=== PATIENT | female | born 1955 | race Caucasian/White ===

== ENCOUNTER 2019-11-16 10:21 | Outpatient (CLI) | payer MEDICARE, MEDICAID, SELFPAY ==
--- NOTE | 2019-11-17 00:45 | WPDPFTINT ---
PFT Interpretation PFT Interpretation: DOS: 11/16/2019 REQUESTING: Dr Salazar REASON FOR TESTING: Dyspnea on exertion PULMONARY FUNCTION TESTS The results are not reproducible. The patient was not able to exhale for greater than 6 seconds on 3 attempts. Spirometry: Normal FEV1, 101%. Normal FVC. Normal FEV1%. No bronchodilator was given. Lung volumes: Normal TLC. Increased RV/TLC ratio consistent with air trapping. Increased airway resistance 184%. Diffusion: DLCO 74%. Mildly decreased. Flow volume loop: One loop was normal. IMPRESSION: Normal spirometry, no bronchdilator was given. Mild air trapping and increased airway resistance consistent with obstructive process. Mild diffusion impairment. Kylee Causey MD
== END 2019-11-16 10:22 | disposition home or self-care (01) ==
PROVIDERS: PCP Family Medicine; Visit Provider Internal Medicine Cardiovascular Disease
DX: R06.09 Other forms of dyspnea (principal)
CPT/HCPCS: 94375; 94726; 94729

== ENCOUNTER → 2019-12-09 10:33 | Outpatient (CLI) | payer MEDICARE, MEDICAID, SELFPAY ==
--- NOTE | ~2019-12-09 | MM_ITS ---
EXAMINATION: MM screening kathy BI w fatou HISTORY: Screening mammogram TECHNIQUE: Craniocaudal and mediolateral oblique 3-D tomosynthesis images were obtained and synthetic 2-D images were generated. CAD analysis was submitted and interpreted. COMPARISON: 11/01/2018, 01/09/2017 bilateral digital screening mammogram examinations BREAST PARENCHYMAL COMPOSITION: The breasts are heterogeneously dense, which may obscure small masses . FINDINGS: Stable fibroglandular asymmetry. There is no evidence of suspicious mass, calcification, or architectural distortion to suggest malignancy in either breast. There has been no suspicious inte rval change. IMPRESSION: 1. No mammographic evidence of malignancy. 2. Recommend routine screening mammography in one year. BI-RADS Category 2: Benign finding(s). Reviewed, dictated and finalized at location A.
== END ==
PROVIDERS: PCP Family Medicine; Visit Provider Family Medicine
DX: Z12.31 Encounter for screening mammogram for malignant neoplasm of breast (principal)
CPT/HCPCS: 77063; 77067

== ENCOUNTER 2020-02-02 09:55 | Outpatient (CLI) | payer MEDICARE, MEDICAID, SELFPAY ==
[2020-02-02 10:46] LABS: Cholesterol 187 mg/dL (0-200); HDL Direct 47 mg/dL; Triglycerides 169 mg/dL (<150)
[2020-02-02 10:56] LABS: LDL Cholesterol Direct 110 mg/dL
== END 2020-02-02 09:56 | disposition home or self-care (01) ==
LOC: ANHLAB 09:59
PROVIDERS: PCP Family Medicine; Visit Provider Internal Medicine Cardiovascular Disease
DX: E78.5 Hyperlipidemia, unspecified (principal)
CPT/HCPCS: 36415; 80061

== ENCOUNTER 2020-04-18 14:13 | Emergency (ER) | payer MEDICARE, MEDICAID, SELFPAY ==
--- NOTE | ~2020-04-18 | CT_ITS ---
EXAMINATION: CT pelvis wo con DATE: 04/18/2020 16:21 INDICATION: Right hip pain after fall, initial encounter TECHNIQUE: Computed tomography (CT) of the pelvis was performed without intravenous contrast. The dos e-length product (DLP) was 789.71 mGy-cm. Automated exposure control and iterative reconstruction xavier hnique were employed. COMPARISON: 05/29/2016 FINDINGS: There is an acute, traumatic, nondisplaced fracture of the right inferior pubic ramus. A fr acture is also seen at the lateral aspect of the right sacrum (axial image 33). Bone alignment is nor mal. There are no dilated loops of bowel. No pathologically enlarged pelvic lymph nodes are identifie d. Osteitis pubis is noted. IMPRESSION: 1. Acute fractures of the right inferior pubic ramus and right sacrum. Reviewed, dictated and finalized at location A.
--- NOTE | ~2020-04-18 | XR_ITS ---
EXAMINATION: XR hip RT min 3V w AP pelvis INDICATION: Right hip pain TECHNIQUE: AP view the pelvis and three views of the right hip are obtained. COMPARISON: CT, 05/29/2016 FINDINGS: Bone alignment is normal. There is no fracture. There is mild bilateral hip osteoarthritis. Osteitis pubis is noted. Pelvic phleboliths are unchanged. IMPRESSION: 1. No acute osseous abnormality. Reviewed, dictated and finalized at location A.
[2020-04-18 14:19] VITALS: BP 113/86; PULSE 84; RESP 18; TEMP 36.8; O2SAT 97
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
[2020-04-18 16:14] VITALS: BP 118/74; PULSE 79; RESP 15; O2SAT 100
== END 2020-04-18 17:13 | disposition home or self-care (01) ==
PROVIDERS: Emergency Provider General Practice; PCP Family Medicine
DX: S32.501A Unspecified fracture of right pubis, initial encounter for closed fracture (principal); S32.10XA Unspecified fracture of sacrum, initial encounter for closed fracture; F31.9 Bipolar disorder, unspecified; D64.9 Anemia, unspecified; M54.5 Low back pain; G89.29 Other chronic pain; Z87.440 Personal history of urinary (tract) infections; F41.9 Anxiety disorder, unspecified; E78.5 Hyperlipidemia, unspecified; I10 Essential (primary) hypertension; M19.90 Unspecified osteoarthritis, unspecified site; W01.0XXA Fall on same level from slipping, tripping and stumbling without subsequent striking against object, initial encounter
CPT/HCPCS: 72192; 73502; 99284; A9270

== ENCOUNTER 2020-05-03 10:07 | Emergency (ER) | payer MEDICARE, MEDICAID, SELFPAY ==
[2020-05-03 10:21] VITALS: BP 156/89; PULSE 102; RESP 16; TEMP 37; O2SAT 97
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
== END 2020-05-03 11:18 | disposition home or self-care (01) ==
PROVIDERS: Emergency Provider Nurse Practitioner; PCP Family Medicine
DX: R30.0 Dysuria (principal); Z96.651 Presence of right artificial knee joint; F32.9 Major depressive disorder, single episode, unspecified; F41.9 Anxiety disorder, unspecified; H40.9 Unspecified glaucoma; E78.5 Hyperlipidemia, unspecified; I10 Essential (primary) hypertension; M19.90 Unspecified osteoarthritis, unspecified site; M81.0 Age-related osteoporosis without current pathological fracture; Z87.891 Personal history of nicotine dependence
CPT/HCPCS: 87077; 87086; 87088; 87186; 99213; G0463

== ENCOUNTER 2020-07-26 09:10 | Outpatient (CLI) | payer MEDICARE, MEDICAID, SELFPAY ==
[2020-07-26 10:21] LABS: Alanine Aminotransferase 29 U/L (4-35); Albumin Level 4.4 g/dL (3.5-5.1); Alkaline Phosphatase 131 U/L (38-126); Anion Gap 7 mmol/L (8-16); Aspartate Amino Transferase 36 U/L (14-36); Bilirubin,Total 0.6 mg/dL (0.2-1.3); Blood Urea Nitrogen 14 mg/dL (7-17); Calcium 9.6 mg/dL (8.4-10.2); Carbon Dioxide 35 mmol/L (22-30); Chloride 98 mmol/L (98-107); Cholesterol 172 mg/dL (0-200); Estimated Glomerular Filt Rate > 60; Glucose 97 mg/dL (65-105); HDL Direct 46 mg/dL; Potassium 4.6 mmol/L (3.4-5.0); Sodium 140 mmol/L (137-145); Triglycerides 255 mg/dL (<150)
[2020-07-26 10:32] LABS: LDL Cholesterol Direct 93 mg/dL
[2020-07-26 10:45] LABS: Creatinine Urine 130.1 mg/dL
[2020-07-26 10:51] LABS: MALB Creatinine Ratio 5.4 mg/g (0-30)
[2020-07-26 11:12] LABS: Free T4 Free Thyroxine 1.02 ng/mL (0.78-2.19); Vitamin D 25 Hydroxy 48.9 ng/mL
[2020-07-26 11:32] LABS: Basophils Percent Auto 0.5 % (0.2-1.2); Eosinophils Absolute Auto 0.3 K/mm3 (0-0.3); Eosinophils Percent Auto 3.8 % (0-4.4); Hematocrit 37.9 % (37.0-47.0); Hemoglobin 12.1 g/dL (12.0-15.0); Immature Granulocyte Absolute 0.03 K/mm3 (0.00-0.031); Immature Granulocyte Percent A 0.4 % (0-0.5); Lymphocytes Absolute Auto 1.26 K/mm3 (0.9-3.2); Lymphocytes Percent Auto 15.8 % (18.3-44.2); Mean Corpuscular HGB Conc 31.9 g/dl (32-36); Mean Corpuscular Hemoglobin 27.9 pg (26-34); Mean Corpuscular Volume 87.3 fl (80-100); Mean Platelet Volume 9.8 fl (7.4-10.4); Monocytes Absolute Auto 0.5 K/mm3 (0.1-0.6); Monocytes Percent Auto 6.1 % (2.6-8.5); Neutrophils Absolute Auto 5.9 K/mm3 (1.3-6.7); Neutrophils Percent Auto 73.4 % (45.5-73.1); Platelet Count Result 271 k/mm3 (150-375); Red Blood Count 4.34 M/mm3 (4.2-5.4); Red Cell Distribution Width 14.1 % (11.5-14.5)
== END 2020-07-26 09:11 | disposition home or self-care (01) ==
PROVIDERS: PCP Family Medicine; Visit Provider Nurse Practitioner
DX: E78.2 Mixed hyperlipidemia (principal); I10 Essential (primary) hypertension; E55.9 Vitamin D deficiency, unspecified; R80.9 Proteinuria, unspecified; Z13.6 Encounter for screening for cardiovascular disorders
CPT/HCPCS: 36415; 80053; 80061; 82043; 82306; 84439; 84443; 85025

== ENCOUNTER 2020-10-10 09:00 | Outpatient (CLI) | payer MEDICARE, MEDICAID, SELFPAY ==
--- NOTE | ~2020-10-10 | NM_ITS ---
EXAMINATION: NM willie stress w perfusion DATE: 10/10/2020 14:01 INDICATION: Chest pain. TECHNIQUE: Rest images were obtained following intravenous administration of 9.4 mCi Tc99m tetrofosmi n (Myoview). The patient was infused intravenously with Lexiscan (regadenoson). Then, 24.8 mCi Tc99m tetrofosmin (Myoview) was administered intravenously, and stress images were obtained. Data was recon structed into short axis and horizontal and vertical long axis SPECT images. Gated SPECT images were also obtained. COMPARISON: None. FINDINGS: There is no definite reversible or fixed perfusion abnormality to suggest ischemia or infar ction. There is no segmental wall motion abnormality. Left ventricular ejection fraction measures 6 9%. IMPRESSION: 1. No definite ischemia or infarct. 2. Normal left ventricular ejection fraction measuring 69%. Reviewed, dictated and finalized at location A. ATIONAL SPECIALIST
--- NOTE | 2020-10-10 10:54 | EST_ITS ---
Patient Info Name: Katie Spain Age: 65 years : 1955 Gender: Female Ht: 66 in Wt: 210 lbs BSA: 2.14 m2 Exam Date: 10/10/2020 10:59 AM Exam Location: [facility] Stress Patient Status: Outpatient Admit Date: 10/10/2020 Staff Ordering Physician: Jorge Salazar DO Attending Provider: Jorge Salazar DO Exercise Technologist: Wes Ahumada RDCS, RT Exam Type: CA stress willie w NM Study Info A regadenoson stress test was performed. Summary 1. 1. Negative lexiscan stress test for ischemic ST changes by ECG criteria. 2. 2. Baseline hypertension. 3. 3. Nuclear scan to follow and will be reported separately. Please correlate with it. 4. 4. Patient informed of the above results. Protocol: Lexiscan Stress ECG Details Stage: REST Duration (min): 1 min : 42 sec HR (bpm): 67 SBP (mmHg): 164 DBP (mmHg): 81 Stage: REST Duration (min): 5 min : 57 sec HR (bpm): 68 SBP (mmHg): 164 DBP (mmHg): 81 Stage: STAGE 1 Duration (min): 0 min : 59 sec HR (bpm): 91 SBP (mmHg): 175 DBP (mmHg): 80 Stage: RECOVERY Duration (min): 1 min : 0 sec HR (bpm): 90 SBP (mmHg): 175 DBP (mmHg): 80 Stage: RECOVERY Duration (min): 2 min : 0 sec HR (bpm): 91 SBP (mmHg): 175 DBP (mmHg): 80 Stage: RECOVERY Duration (min): 3 min : 0 sec HR (bpm): 85 SBP (mmHg): 216 DBP (mmHg): 80 Stage: RECOVERY Duration (min): 3 min : 38 sec HR (bpm): 88 SBP (mmHg): 211 DBP (mmHg): 79 Rest HR: 68 bpm Peak HR: 97 bpm Rest Sys BP: 164 mmHg Peak Sys BP: 216 mmHg Max Pred HR: 157 bpm % Max Pred HR: 62 % Target HR: 133 bpm Max RPP: 20,952 bpm*mmHg Termination Reason: Completed protocol Cardiac Symptoms: Shortness of breath Total Time: 1 min : 0 sec Rest Interiano BP: 81 mmHg Peak Interiano BP: 80 mmHg Total Dose: 0.4 mg Resting ECG Sinus rhythm. Stress ECG No ST changes. Arrhythmias None. Report Signatures
== END 2020-10-10 09:01 | disposition home or self-care (01) ==
PROVIDERS: Family Provider Orthopaedic Surgery; PCP Family Medicine; Visit Provider Internal Medicine Cardiovascular Disease
DX: R07.89 Other chest pain (principal)
CPT/HCPCS: 78452; 93017; A9502; J2785

== ENCOUNTER 2020-11-15 09:45 | Outpatient (CLI) | payer MEDICARE, MEDICAID, SELFPAY ==
[2020-11-15 10:51] LABS: Free T4 Free Thyroxine 1.21 ng/mL (0.78-2.19)
[2020-11-15 11:03] LABS: Total Triiodothyronine (T3) 1.09 NG/ML (0.97-1.69)
== END 2020-11-15 09:46 | disposition home or self-care (01) ==
PROVIDERS: PCP Family Medicine; Visit Provider Nurse Practitioner
DX: E03.9 Hypothyroidism, unspecified (principal)
CPT/HCPCS: 36415; 84439; 84443; 84480

== ENCOUNTER 2020-11-23 09:32 | Outpatient (CLI) | payer MEDICARE, MEDICAID, SELFPAY | END 2020-11-23 09:33 | disposition home or self-care (01) | LOC: ANHCOVIDVC 09:32 | PROVIDERS: PCP Family Medicine | DX: Z23 Encounter for immunization (principal) | CPT/HCPCS: 0001A; 91300 ==

== ENCOUNTER 2020-11-30 20:17 | Emergency (ER) | payer MEDICARE, MEDICAID, SELFPAY ==
--- NOTE | ~2020-11-30 | XR_ITS ---
XR ribs LT 2V DATE: 11/30/2020 20:46 INDICATION: Fall. Rib pain under left breast TECHNIQUE: 3 views of left ribs COMPARISON: 09/21/2019 AP and lateral chest FINDINGS: Diffuse osteopenia. No left rib fracture is detected. Chronic fracture deformity of L3 vertebral body is incidentally noted, also evident on lateral chest 09/21/2019. There is thoracic and lumbar scoliosis. Moderate sized hiatal hernia is noted. Normal heart size. No pulmonary infiltrate or consolidation, pleural effusion or pneumothorax is noted on the left. Incl uded right lung field is unremarkable. IMPRESSION: Osteopenia L3 chronic burst fracture Reviewed, dictated and finalized at location A.
--- NOTE | ~2020-11-30 | XR_ITS ---
XR elbow LT min 3V DATE: 11/30/2020 20:46 INDICATION: Fall. Posterior elbow pain and swelling TECHNIQUE: 4 views COMPARISON: None FINDINGS: There is a proximally displaced intra-articular fracture of the olecranon process of the pr oximal ulna, from the remainder of the ulna by at least 5 1.5 cm distance. There is elbow joint effusion. No other fracture or dislocation. No periosteal reaction or bone destruction. Osteopenia. IMPRESSION: Approximately displaced intra-articular olecranon process fracture with hemarthrosis Reviewed, dictated and finalized at location A.
[2020-11-30 20:19] VITALS: BP 149/77; PULSE 94; RESP 17; TEMP 35.9; O2SAT 94
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
[2020-11-30] MEDS: KETOROLAC 30 MG/ML VIAL (*BKC) IM (21:36)
[2020-11-30 22:45] VITALS: BP 139/82; PULSE 89; RESP 8; O2SAT 98
== END 2020-11-30 23:00 | disposition home or self-care (01) ==
PROVIDERS: Emergency Provider Nurse Practitioner; PCP Family Medicine
DX: S52.032A Displaced fracture of olecranon process with intraarticular extension of left ulna, initial encounter for closed fracture (principal); D64.9 Anemia, unspecified; H40.9 Unspecified glaucoma; E78.5 Hyperlipidemia, unspecified; I10 Essential (primary) hypertension; M19.90 Unspecified osteoarthritis, unspecified site; F41.1 Generalized anxiety disorder; F31.9 Bipolar disorder, unspecified; F20.9 Schizophrenia, unspecified; Z87.440 Personal history of urinary (tract) infections; Z98.49 Cataract extraction status, unspecified eye; Z96.659 Presence of unspecified artificial knee joint; Z87.891 Personal history of nicotine dependence; M85.88 Other specified disorders of bone density and structure, other site; W01.0XXA Fall on same level from slipping, tripping and stumbling without subsequent striking against object, initial encounter
CPT/HCPCS: 29105; 71100; 73080; 96372; 99284; A4565; J1885

== ENCOUNTER 2020-12-02 07:39 | Inpatient (IN) | payer MEDICARE, MEDICAID, SELFPAY ==
[2020-12-02] VITALS (12 sets, daily range): BP systolic 98–164; BP diastolic 46–100; PULSE 69–116; RESP 18–20; TEMP 36.4–37.7; O2SAT 92–98; BMI 34.7
--- NOTE | ~2020-12-02 | CT_ITS ---
EXAMINATION: CTA chest PE protocol DATE: 12/02/2020 09:49 INDICATION: Shortness of breath and chest pain TECHNIQUE: Computed tomography (CT) pulmonary angiogram of the chest was performed with 100 mL Omnipa que-350 intravenous contrast. Additional 3D reconstructions utilizing coronal maximum intensity proje ction (MIP) were performed. Automated exposure control and iterative reconstruction technique were em ployed. The dose-length product was 885.43 mGy-cm. COMPARISON: None FINDINGS: Excellent contrast opacification of the pulmonary arteries. There is mild streak artifact from dense contrast in the superior vena cava and right atrium. Minimal scattered respiratory motion artifact wh ich does not significantly limit evaluation. No pulmonary embolism. Negligible dependent atelectasis in the bilateral lower lobes. Additional mild discoid atelectasis in the left lower lobe. No pneumoni a, pulmonary edema, pleural effusion or pneumothorax. Heart size is normal. Atherosclerotic coronary artery calcification. No pericardial effusion. No pathologically enlarged thoracic lymphadenopathy. S mall sliding-type hiatal hernia. There is wall thickening throughout the thoracic esophagus which cou ld be related to reflux esophagitis. Diffuse hepatic steatosis. Mild thoracic dextroscoliosis. Chroni c mild anterior wedging with superior endplate Schmorl's node at T7. IMPRESSION: 1. No pulmonary embolism or other acute cardiopulmonary disease. 2. Small sliding-type hiatal hernia with diffuse esophageal wall thickening which could be related to reflux esophagitis. 3. Diffuse hepatic steatosis. Reviewed, dictated and finalized at location A. IMPRESSION: 1. No pulmonary embolism or other acute cardiopulmonary disease. 2. Small sliding-type hiatal hernia with diffuse esophageal wall thickening whi ch could be related to reflux esophagitis. 3. Diffuse hepatic steatosis.
--- NOTE | 2020-12-02 08:05 | ECG_ITS ---
Measurements Intervals [place] Rate: 78 P: 66 SC: 142 QRS: 34 QRSD: 88 T: 47 QT: 383 QTc: 438 Interpretive Statements SINUS RHYTHM EARLY PRECORDIAL R/S TRANSITION BASELINE ARTIFACT- II, III, AVF BORDERLINE ECG Electronically Signed On 12-02-2020 10:05:28 CDT by Jorge Salazar D.O.
--- NOTE | 2020-12-02 08:06 | ED.GENADULT ---
HPI - General Adult General Chief complaint: Fall Stated complaint: fall Time Seen by Provider: 12/02/20 07:41 Source: patient History of Present Illness HPI narrative: Patient is a 65 y/o female complaining of left sided chest pain and SOB. She describes her pain as sharp and rates it as 8-10/10. She states that breathing makes her pain worse. She feels slightly SOB. She states that she had a fall 2 days ago and was evaluated here. She had rib xray and left elbow xray. She was diagnosed with elbow fracture. However, her rib xray was negative. She denies hitting her head or having LOC. She also states that she has been weak and she has trouble getting around. She live by herself. Related Data Home Medications Medication Instructions Recorded Confirmed Xiidra 12/02/20 amlodipine 10 mg PO DAILY 12/02/20 atorvastatin 40 mg PO DAILY 12/02/20 azilsartan medoxomil 40 mg PO DAILY 12/02/20 calcium carbonate-vitamin D3 tablet PO 12/02/20 [Calcium with Vitamin D] calcium phosphate-vitamin D3 tablet PO 12/02/20 [Yogurt Plus Calcium Gummies] carvedilol 12.5 mg PO BID 12/02/20 cephalexin 500 mg PO Q8H 12/02/20 clonidine 1 patch TRANSDERMAL WEEKLY 12/02/20 cyclobenzaprine 10 mg PO TID PRN 12/02/20 diphenhydramine HCl 25 mg PO TID PRN 12/02/20 famotidine 20 mg PO DAILY 12/02/20 fluticasone propionate [Flonase] 2 spray INTRANASAL DAILY 12/02/20 hydrocodone-acetaminophen 1 tablet PO Q4H PRN 12/02/20 melatonin 10 mg PO HS PRN 12/02/20 xaaoiroykzym-ovo-dkip-FA-vit K tablet PO 12/02/20 [Adults Multivitamin] olmesartan 40 mg PO DAILY 12/02/20 fyyjr-7w-goy-epa-fish oil [[place] 3] cap PO 12/02/20 pantoprazole 20 mg PO HS 12/02/20 sertraline 200 mg PO DAILY 12/02/20 travoprost [Travatan Z] drp 12/02/20 trazodone 150 mg PO HS 12/02/20 Allergies Allergy/AdvReac Type Severity Reaction Status Date / Time hydromorphone [From Dilaudid] Allergy Vomiting Verified 12/02/20 07:54 meperidine [From Demerol] Allergy Hives Verified 12/02/20 07:45 morphine Allergy Unknown Verified 12/02/20 07:54 Penicillins Allergy Hives Verified 12/02/20 07:45 Review of Systems Constitutional: Constitutional: Denies chills, Denies fever(s), Denies headache(s) and Reports weakness Eyes: Eyes: Denies blurry vision ENT: Denies headache(s) and Denies neck pain Cardiovascular: Cardiovascular: Reports chest pain and Reports dyspnea Respiratory: Respiratory: Denies cough and Reports dyspnea Gastrointestinal: Gastrointestinal: Denies abdominal pain, Denies diarrhea, Denies nausea and Denies vomiting Genitourinary: Genitourinary: Denies hematuria and Denies dysuria Musculoskeletal: Musculoskeletal: Denies back pain, Reports arthralgias (left elbow pain) and Denies neck pain Neurologic: Denies headache(s) and Reports weakness PMFSH Social History Social History Gender identity (if verbalized by the patient): Female Exam Const: General: no acute distress and well developed Orientation/consciousness: oriented to person, oriented to place, oriented to time and patient oriented x3 HENMT: Head: normocephalic Ears: external ears normal General nose exam: Normal external nose present Eyes: General: appearance normal, both eyes and all related structures Conjunctivae: conjunctivae normal Neck: Neck: normal visual inspection and full ROM Chest: Chest palpation & inspection: normal inspection of the chest and tenderness (left chest wall tenderness) Resp: Effort & Inspection: normal respiratory effort Auscultation: clear to auscultation bilaterally Cardio: Rate: regular rate Rhythm: regular rhythm GI: GI Palp: No abdominal tenderness and Yes Soft to palpation Skin: General skin exam: normal color and turgor normal Neuro: General: oriented to person, oriented to place, oriented to time and patient oriented x3 Cognition (Neuro): normal cognition Extrem: General: normal to insp
[2020-12-02 08:26] LABS: Basophils Percent Auto 0.3 % (0.2-1.2); Eosinophils Absolute Auto 0.1 K/mm3 (0-0.3); Eosinophils Percent Auto 0.8 % (0-4.4); Hematocrit 33.2 % (37.0-47.0); Hemoglobin 10.7 g/dL (12.0-15.0); Immature Granulocyte Absolute 0.06 K/mm3 (0.00-0.031); Immature Granulocyte Percent A 0.4 % (0-0.5); Lymphocytes Percent Auto 8.4 % (18.3-44.2); Mean Corpuscular HGB Conc 32.2 g/dl (32-36); Mean Corpuscular Hemoglobin 27.4 pg (26-34); Mean Corpuscular Volume 84.9 fl (80-100); Monocytes Percent Auto 6.7 % (2.6-8.5); Neutrophils Absolute Auto 11.9 K/mm3 (1.3-6.7); Neutrophils Percent Auto 83.4 % (45.5-73.1); Platelet Count Result 282 k/mm3 (150-375); Red Blood Count 3.91 M/mm3 (4.2-5.4); Red Cell Distribution Width 14.4 % (11.5-14.5); White Blood Count 14.2 K/mm3 (4.5-10.0)
[2020-12-02 08:37] LABS: Alanine Aminotransferase 24 U/L (4-35); Alkaline Phosphatase 81 U/L (38-126); Anion Gap 7 mmol/L (8-16); Aspartate Amino Transferase 38 U/L (14-36); Bilirubin,Total 0.5 mg/dL (0.2-1.3); Blood Urea Nitrogen 29 mg/dL (7-17); Calcium 8.6 mg/dL (8.4-10.2); Carbon Dioxide 32 mmol/L (22-30); Chloride 97 mmol/L (98-107); Estimated CRCL calculation 39 ml/min; Estimated Glomerular Filt Rate 35; Glucose 122 mg/dL (65-105); Potassium 4.4 mmol/L (3.4-5.0); Sodium 136 mmol/L (137-145)
[2020-12-02] MEDS: SODIUM CHLORIDE 0.9% IV 1,000 ML 999 ML IV CONT (09:03)
[2020-12-02 09:11] LABS: Add Urine Microscopic? YES; Appearance Urine Cloudy (Clear); Bacteria Urine 4+ /hpf; Bilirubin Urine Negative (Negative); Blood Urine Negative (Negative); Color Urine Yellow (Yellow); Glucose Urine UA Negative (Negative); Hyaline Casts Urine 15-19 /lpf; Ketones Urine Negative (Negative); Leukocyte Esterase Ur 1+ LEU/UL (Negative); Mucus Urine Rare /lpf; Nitrate Urine Negative (Negative); Protein Urine 1+ mg/dL (Negative); RBC Urine 0-2 /hpf (0-2); Specific Grav Ur 1.017 (1.001-1.035); Squamous Epithelial Cell Urine Rare /hpf (Few); Urobilinogen Urine Negative mg/dL (<2.0)
--- NOTE | 2020-12-02 11:29 | PC.NURSE ---
Spoke with Care coordination, Germán, to come speak with pt about possible options of going home VS assisted living
--- NOTE | 2020-12-02 11:30 | PC.NURSE ---
Ambulated patient in room with assist x 1. Patient was difficult to sit up in stretcher but when walking had steady gait at this time. Dr. Nguyen notified.
[2020-12-02] MEDS: HYDROcodone/acetaminophen (*CRX) 5-325 MG TABLET 1 TAB PO ×3 (11:57→22:21)
--- NOTE | 2020-12-02 13:12 | PC.NURSE ---
PT/OT here at this time for patient eval.
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
[2020-12-02] MEDS: CIPROFLOXACIN 400 MG/D5W 200ML 200 ML 200 MG IVPB (13:47)
--- NOTE | 2020-12-02 14:42 | PC.NURSE ---
This patient, Katie Spain, was admitted to Medical Room 343-01. Patient/family oriented to hospital policies and general routines including ID bracelet, bed and alarms, visiting hours, pain management, procedures, bathroom and other care routines, personal items, smoking policy, room service/diet, and visiting hours. Information on how to activate the Rapid Response Team has been discussed. Patient/Family are encouraged to report perceived risks to care and to ask questions if they do not understand what they are told or what they should do.
[2020-12-02] MEDS: SODIUM CHLORIDE 0.9% IV 250 ML 100 ML IV CONT (15:33)
[2020-12-02 18:19] LABS: Anion Gap 7 mmol/L (8-16); Blood Urea Nitrogen 23 mg/dL (7-17); Calcium 8.8 mg/dL (8.4-10.2); Carbon Dioxide 30 mmol/L (22-30); Chloride 102 mmol/L (98-107); Estimated CRCL calculation 49 ml/min; Estimated Glomerular Filt Rate 45; Glucose 131 mg/dL (65-105); Magnesium 1.9 mg/dL (1.6-2.3); Potassium 4.2 mmol/L (3.4-5.0); Sodium 139 mmol/L (137-145)
[2020-12-02 19:00] LABS: Iron 29 ug/dL (37-170)
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
[2020-12-02 19:09] LABS: Percent Iron Saturation 9 % (20-50)
[2020-12-02 19:32] LABS: Folic Acid > 20.0 ng/mL (2.76->20)
[2020-12-02] MEDS: PANTOPRAZOLE SOD SESQUIHYDRATE 20 MG TAB PO (22:00)
[2020-12-02] MEDS: carvediloL 25 MG TABLET PO (22:00)
[2020-12-02] MEDS: traZODone HCL 50 MG TABLET 150 MG PO (22:00)
[2020-12-02] MEDS: GABAPENTIN 300 MG CAPSULE PO (22:01)
[2020-12-03] VITALS (14 sets, daily range): BP systolic 110–185; BP diastolic 51–96; PULSE 80–95; RESP 16–18; TEMP 36.1–37; O2SAT 94–98
[2020-12-03] MEDS: HYDROcodone/acetaminophen (*CRX) 5-325 MG TABLET 1 TAB PO ×5 (04:45→21:39)
[2020-12-03 05:46] LABS: Hematocrit 32.1 % (37.0-47.0); Hemoglobin 10.4 g/dL (12.0-15.0); Mean Corpuscular HGB Conc 32.4 g/dl (32-36); Mean Corpuscular Hemoglobin 27.8 pg (26-34); Mean Corpuscular Volume 85.8 fl (80-100); Mean Platelet Volume 9.9 fl (7.4-10.4); Platelet Count Result 213 k/mm3 (150-375); Red Blood Count 3.74 M/mm3 (4.2-5.4); Red Cell Distribution Width 14.3 % (11.5-14.5); White Blood Count 10.3 K/mm3 (4.5-10.0)
[2020-12-03] MEDS: LEVOTHYROXINE SODIUM 25 MCG TABLET PO (06:38)
[2020-12-03] MEDS: GABAPENTIN 300 MG CAPSULE PO ×3 (06:38→21:38)
[2020-12-03 06:49] LABS: Anion Gap 5 mmol/L (8-16); Blood Urea Nitrogen 16 mg/dL (7-17); Calcium 8.7 mg/dL (8.4-10.2); Carbon Dioxide 31 mmol/L (22-30); Chloride 103 mmol/L (98-107); Estimated CRCL calculation 75 ml/min; Estimated Glomerular Filt Rate > 60; Glucose 117 mg/dL (65-105); Potassium 4.2 mmol/L (3.4-5.0); Sodium 139 mmol/L (137-145)
[2020-12-03] MEDS: SERTRALINE HCL 50 MG TABLET 200 MG PO (08:52)
[2020-12-03] MEDS: amLODIPine BESYLATE 5 MG TABLET 10 MG PO (08:52)
[2020-12-03] MEDS: ATORVASTATIN 40 MG TABLET PO (08:52)
[2020-12-03] MEDS: FLUTICASONE PROPIONATE 0.05% NA SPR 16 GM BTL (*BKC) 2 SPRAY NASAL (08:52)
[2020-12-03] MEDS: carvediloL 25 MG TABLET PO ×2 (08:53→21:38)
[2020-12-03 13:22] LABS: SARS-CoV-2 RNA PCR Negative
--- NOTE | 2020-12-03 14:34 | PM.IMPN ---
Progress Note: A&P Assessment and Plan (1) Generalized weakness: Code(s): R53.1 - Weakness Status: Acute Assessment and Plan: likely secondary to being mostly homebound for the last year or so due to pandemic patient evaluated by physical therapy and occupational therapy patient will be going home with home health (2) Dehydration: Code(s): E86.0 - Dehydration Status: Acute Assessment and Plan: has been adequately fluid resuscitated (3) Elevated serum creatinine: Code(s): R79.89 - Other specified abnormal findings of blood chemistry Status: Acute Assessment and Plan: likely some prerenal azotemia now is back to normal (4) Chest wall contusion: Qualifiers: Encounter type: initial encounter Laterality: left Qualified Code(s): S20.212A - Contusion of left front wall of thorax, initial encounter Code(s): S20.219A - Contusion of unspecified front wall of thorax, initial encounter Status: Acute Assessment and Plan: no rib fracture supportive care (5) Closed fracture of left elbow: Qualifiers: Encounter type: subsequent encounter Fracture healing: with routine healing Qualified Code(s): S42.402D - Unspecified fracture of lower end of left humerus, subsequent encounter for fracture with routine healing Code(s): S42.402A - Unspecified fracture of lower end of left humerus, initial encounter for closed fracture Status: Acute Assessment and Plan: patient has a sling on medical management supportive care (6) Fall from bed: Code(s): W06.XXXA - Fall from bed, initial encounter Status: Acute Assessment and Plan: no loss of consciousness no syncope or near syncope mechanical fall (7) Normocytic anemia: Code(s): D64.9 - Anemia, unspecified Status: Acute Assessment and Plan: follow-up in the patient's Subjective Date/time seen: 12/03/20 14:34 I feel fine Review of Systems Review of Systems: Narrative: patient is here after she slipped out of her bed and was unable to get up by herself called EMS patient was noted to be very weak and unable to get on the shower by herself and was brought to the emergency room Constitutional: Comments: patient states that she has been in her usual state of health denies any chills rigors fevers ENT: Comments: no nasal congestion no upper respiratory airway infections no throat pain no ear ache Cardiovascular: Comments: no loss of consciousness no syncope no nursing no shortness of breath no PND or orthopnea Respiratory: Comments: no cough no sputum production Gastrointestinal: Comments: no nausea no vomiting no diarrhea no abdominal pain Genitourinary: Comments: no pain or burning with urination Musculoskeletal: Comments: patient is wearing a sling Integumentary/Breasts: Comments: no rash Neurologic: Comments: no sensorimotor deficit Hematologic/Lymphatic: Comments: no lymphadenopathy Exam Const: General: comfortable, no acute distress, well developed, alert and awake Nutritional Appearance: overweight Orientation/consciousness: patient oriented x3 HENMT: Head: normal to inspection, normocephalic and atraumatic Ears: hearing grossly normal bilaterally Face and sinus: normal facial exam Eyes: General: appearance normal, both eyes and all related structures Pupils: Equal, round and reactive pupils present EOM: EOMs intact bilaterally Neck: Neck: full ROM, no lymphadenopathy and no JVD Thyroid: thyroid normal Lymphatic: no lymphadenopathy noted Resp: Effort & Inspection: normal respiratory effort and able to speak in complete sentences Auscultation: clear to auscultation bilaterally Cardio: Jugular venous distension: no JVD Rate: regular rate Rhythm: regular rhythm Heart sounds: S1 normal heart sound present and S2 normal heart sound present GI: GI Palp: Yes Soft to palpation and Yes No he
[2020-12-03] MEDS: PANTOPRAZOLE SOD SESQUIHYDRATE 20 MG TAB PO (21:38)
[2020-12-03] MEDS: traZODone HCL 50 MG TABLET 150 MG PO (21:39)
[2020-12-04] VITALS (12 sets, daily range): BP systolic 116–169; BP diastolic 53–106; PULSE 73–92; RESP 16–20; TEMP 35.6–36.9; O2SAT 95–98
[2020-12-04] MEDS: HYDROcodone/acetaminophen (*CRX) 5-325 MG TABLET 1 TAB PO ×5 (03:23→22:02)
[2020-12-04] MEDS: LEVOTHYROXINE SODIUM 25 MCG TABLET PO (06:12)
[2020-12-04] MEDS: GABAPENTIN 300 MG CAPSULE PO ×3 (06:12→21:03)
[2020-12-04] MEDS: carvediloL 25 MG TABLET PO ×2 (08:00→21:04)
[2020-12-04] MEDS: FLUTICASONE PROPIONATE 0.05% NA SPR 16 GM BTL (*BKC) 2 SPRAY NASAL (08:00)
[2020-12-04] MEDS: ATORVASTATIN 40 MG TABLET PO (08:00)
[2020-12-04] MEDS: SERTRALINE HCL 50 MG TABLET 200 MG PO (08:01)
[2020-12-04] MEDS: amLODIPine BESYLATE 5 MG TABLET 10 MG PO (08:01)
[2020-12-04] MEDS: levoFLOXacin 500 MG/D5W 100 ML 500 MG/100 ML BAG 100 MG IVPB (08:48)
--- NOTE | 2020-12-04 12:04 | PM.IMPN ---
Progress Note: A&P Assessment and Plan (1) Urinary tract infection: Code(s): N39.0 - Urinary tract infection, site not specified Status: Acute Assessment and Plan: patient has been started on levofloxacin supportive care (2) Dehydration: Code(s): E86.0 - Dehydration Status: Acute Assessment and Plan: adequately fluid resuscitated (3) Generalized weakness: Code(s): R53.1 - Weakness Status: Acute Assessment and Plan: likely secondary to to acute illness participating with PT OT in therapy sessions (4) Fall from bed: Code(s): W06.XXXA - Fall from bed, initial encounter Status: Acute Assessment and Plan: no loss of consciousness fall precaution (5) Chest wall contusion: Qualifiers: Encounter type: initial encounter Laterality: left Qualified Code(s): S20.212A - Contusion of left front wall of thorax, initial encounter Code(s): S20.219A - Contusion of unspecified front wall of thorax, initial encounter Status: Acute Assessment and Plan: no fractures (6) Closed fracture of left elbow: Qualifiers: Encounter type: subsequent encounter Fracture healing: with routine healing Qualified Code(s): S42.402D - Unspecified fracture of lower end of left humerus, subsequent encounter for fracture with routine healing Code(s): S42.402A - Unspecified fracture of lower end of left humerus, initial encounter for closed fracture Status: Acute Assessment and Plan: sling in place medical management supportive care (7) Normocytic anemia: Code(s): D64.9 - Anemia, unspecified Status: Acute Assessment and Plan: follow-up in the outpatient setting Subjective Date/time seen: 12/04/20 12:04 I feel fine Review of Systems Review of Systems: Narrative: patient presented to emergency room due to generalized weakness for an unable to get up by herself Constitutional: Comments: chills Cardiovascular: Comments: no chest pain no leg swelling no PND no orthopnea Respiratory: Comments: no shortness of breath no cough no sputum production Gastrointestinal: Comments: no nausea vomiting diarrhea or constipation or abdominal pain Genitourinary: Comments: had some discomfort to urination Musculoskeletal: Comments: right upper extremity fracture Integumentary/Breasts: Comments: no rash Neurologic: Comments: no sensorimotor deficit Exam Narrative: Exam Narrative: laying in bed in no acute distress Const: General: comfortable, no acute distress, well developed, alert and awake Nutritional Appearance: average body habitus Orientation/consciousness: patient oriented x3 HENMT: Head: normal to inspection, normocephalic and atraumatic Ears: hearing grossly normal bilaterally Face and sinus: normal facial exam Eyes: General: appearance normal, both eyes and all related structures Pupils: Equal, round and reactive pupils present EOM: EOMs intact bilaterally Neck: Neck: full ROM, no lymphadenopathy and no JVD Thyroid: thyroid normal Lymphatic: no lymphadenopathy noted Resp: Effort & Inspection: normal respiratory effort and able to speak in complete sentences Auscultation: clear to auscultation bilaterally Cardio: Jugular venous distension: no JVD Rate: regular rate Rhythm: regular rhythm Heart sounds: S1 normal heart sound present and S2 normal heart sound present GI: GI Palp: Yes Soft to palpation and Yes No hepatosplenomegaly present : General: Yes deferred Skin: Rashes: no rashes Wounds: no wounds Neuro: General: patient oriented x3 and CN's II-XI intact bilaterally Cranial nerves: Yes CN's II-XII intact bilaterally and Yes Equal, round and reactive pupils present Cognition (Neuro): normal cognition Speech: normal speech Gait exam (Neuro): Normal gait present Motor exam (neuro): 5/5 motor strength present throughout Extrem: General: full
--- NOTE | 2020-12-04 14:07 | PC.NURSE ---
Observed patient care and reviewed charting by [facility] student nurse Jayda Lindo [id number]
[2020-12-04] MEDS: PANTOPRAZOLE SOD SESQUIHYDRATE 20 MG TAB PO (21:04)
[2020-12-04] MEDS: traZODone HCL 50 MG TABLET 150 MG PO (21:04)
[2020-12-05] VITALS (7 sets, daily range): BP systolic 150–178; BP diastolic 64–84; PULSE 80–87; RESP 17–20; TEMP 36.1–36.5; O2SAT 98–99
[2020-12-05] MEDS: HYDROcodone/acetaminophen (*CRX) 5-325 MG TABLET 1 TAB PO ×3 (05:08→13:48)
[2020-12-05] MEDS: GABAPENTIN 300 MG CAPSULE PO ×2 (05:47→13:48)
[2020-12-05] MEDS: LEVOTHYROXINE SODIUM 25 MCG TABLET PO (05:47)
[2020-12-05] MEDS: ATORVASTATIN 40 MG TABLET PO (08:11)
[2020-12-05] MEDS: amLODIPine BESYLATE 5 MG TABLET 10 MG PO (08:11)
[2020-12-05] MEDS: SERTRALINE HCL 50 MG TABLET 200 MG PO (08:11)
[2020-12-05] MEDS: FLUTICASONE PROPIONATE 0.05% NA SPR 16 GM BTL (*BKC) 2 SPRAY NASAL (08:12)
[2020-12-05] MEDS: carvediloL 25 MG TABLET PO (08:12)
[2020-12-05] MEDS: levoFLOXacin 500 MG/D5W 100 ML 500 MG/100 ML BAG 100 MG IVPB (08:14)
--- NOTE | 2020-12-05 14:56 | PM.DS ---
DS: Admitting Diagnosis Admitting Diagnosis Admitting Diagnosis: fall DS: Discharge Diagnosis Discharge Diagnosis (1) Normocytic anemia: Code(s): D64.9 - Anemia, unspecified Status: Acute (2) Elevated serum creatinine: Code(s): R79.89 - Other specified abnormal findings of blood chemistry Status: Acute (3) Dehydration: Code(s): E86.0 - Dehydration Status: Acute (4) Urinary retention: Code(s): R33.9 - Retention of urine, unspecified Status: Acute (5) Urinary tract infection: Code(s): N39.0 - Urinary tract infection, site not specified Status: Acute (6) Generalized weakness: Code(s): R53.1 - Weakness Status: Acute (7) Fall from bed: Code(s): W06.XXXA - Fall from bed, initial encounter Status: Acute (8) Chest wall contusion: Qualifiers: Encounter type: initial encounter Laterality: left Qualified Code(s): S20.212A - Contusion of left front wall of thorax, initial encounter Code(s): S20.219A - Contusion of unspecified front wall of thorax, initial encounter Status: Acute (9) Closed fracture of left elbow: Qualifiers: Encounter type: subsequent encounter Fracture healing: with routine healing Qualified Code(s): S42.402D - Unspecified fracture of lower end of left humerus, subsequent encounter for fracture with routine healing Code(s): S42.402A - Unspecified fracture of lower end of left humerus, initial encounter for closed fracture Status: Acute Assessment and Plan: This is a 65-year-old female with hypertension, hypothyroidism, depression, and chronic pain syndrome who presented to the emergency department via EMS for evaluation after she fell out of her bed. She was actually seen emergency department 2 days ago after a fall in which he sustained a left elbow fracture. Sounds as though she has been having a difficult time at home due to the fracture (she ambulates with a walker), and unfortunately she slipped out of bed this morning and had call the fire department to help her up. In addition to left elbow pain she is also complaining of pain under her left breast likely due to a contusion from her fall couple of days ago. PT tried to ambulate her in the emergency department but do not feel that she is safe to be discharged home at this time, difficulties ambulating with a walker wall arm is in a sling). Unfortunately her son is unable to help in any way with the patient and thus she is being admitted for possible rehab or placement. Additionally she complains of dysuria and urinary hesitancy. Urine is suspicious for UTI. Prevoid bladder scan showed 600 milliliters, postvoid residual was about 400 and the Diaz catheter has been inserted. she had no other specific complaints and denies fever, chills, sweats, chest pain, shortness of breath, nausea, vomiting, abdominal pain, and diarrhea. She has not had exertional chest pain, pleuritic pain, palpitations, or shortness of breath. # UTI: on levofloxacin. urine culture with citrobacter. will switch to po. urinary catherer placed for urinary residual of 400 ml. remvoed the diaz and post void residual was nly 45 ml. she will fu with pcp. urinary retention likely due to UTI. # dehydration and BHUMIKA: cr of 1.5 on admission. this has resolved with hydration and tratmetn of infectin. # Generalised weakness: pt/ot evlauated and will be referred to home health. she did not want to go to any SNF palcement. # Fall from bed # chest wall contusion. # left elbow fracture: sling in place. fu with orthopedics or pcp as op basis. # normocytic anemia: stable. fu as op basis. # urinary retension: see above. did void trial and removed diaz in hospital stay. was able to urinate post removal with minimal residual DS: Summary Hospital Course Reason for hospitalization: fall Hospital Course: EXAMINATION: CTA chest PE protocol DATE: 12/02/2020 09:49 INDICATION
--- NOTE | 2020-12-05 16:04 | PC.NURSE ---
Updated discharge sent to [facility].
== END 2020-12-05 16:05 | disposition home health service (06) | DRG 690 ==
LOC: ANHED 14:01 → ANH3MED 14:10
PROVIDERS: Physician Assistant; Admitting Provider Family Medicine; Emergency Provider Emergency Medicine; PCP Family Medicine; Visit Provider Internal Medicine
DX: N39.0 Urinary tract infection, site not specified (principal); S20.212A Contusion of left front wall of thorax, initial encounter; Z20.822 Contact with and (suspected) exposure to COVID-19; S42.402G Unspecified fracture of lower end of left humerus, subsequent encounter for fracture with delayed healing; W06.XXXA Fall from bed, initial encounter; D64.9 Anemia, unspecified; R33.9 Retention of urine, unspecified; E03.9 Hypothyroidism, unspecified; G89.4 Chronic pain syndrome; E86.0 Dehydration; K21.9 Gastro-esophageal reflux disease without esophagitis; H40.9 Unspecified glaucoma; M81.0 Age-related osteoporosis without current pathological fracture; F20.9 Schizophrenia, unspecified; M19.90 Unspecified osteoarthritis, unspecified site; I10 Essential (primary) hypertension; F31.9 Bipolar disorder, unspecified; Z96.651 Presence of right artificial knee joint; Z98.42 Cataract extraction status, left eye; Z98.41 Cataract extraction status, right eye; Z87.891 Personal history of nicotine dependence
CPT/HCPCS: 36415; 71275; 80048; 80053; 81001; 82607; 82728; 82746; 83540; 83550; 83735; 84443; 85025; 85027; 87077; 87086; 87088; 87186; 93005; 96361; 96365; 96366; 96367; 97110; 97116; 97161; 97165; 97535; 99285; A9270; C9803; G0378; J0696; J0744; J1956; J7030; J7050; Q9967; U0003; U0005

== ENCOUNTER 2020-12-14 09:35 | Outpatient (CLI) | payer MEDICARE, MEDICAID, SELFPAY | END 2020-12-14 09:36 | disposition home or self-care (01) | LOC: ANHCOVIDVC 09:35 | PROVIDERS: PCP Family Medicine | DX: Z23 Encounter for immunization (principal) | CPT/HCPCS: 0002A; 91300 ==

== ENCOUNTER 2021-01-20 16:11 | Observation (INO) | payer MEDICARE, MEDICAID, SELFPAY ==
--- NOTE | ~2021-01-20 | CT_ITS ---
EXAMINATION: CT brain wo con DATE: 01/20/2021 18:10 INDICATION: Confusion. TECHNIQUE: Computed tomography (CT) of the head was performed without intravenous contrast. The mA wa s adjusted according to patient size. Iterative reconstruction technique was employed. The dose-lengt h product was 908.00 mGy-cm. COMPARISON: Head CT 09/26/2019 FINDINGS: There is no intracranial hemorrhage, acute infarction, or abnormal intracranial mass lesion . The ventricles are normal in size. There are likely changes of ocular lens replacement surgeries. T he paranasal sinuses are clear. The mastoid air cells are normal. IMPRESSION: 1. Normal brain. Reviewed, dictated and finalized at location A. IMPRESSION: 1. Normal brain.
--- NOTE | ~2021-01-20 | US_ITS ---
EXAMINATION: US carotid duplex BI DATE: 01/21/2021 13:37 INDICATION: Stroke. TECHNIQUE: Grayscale, color Doppler, and pulsed Doppler images of the cervical carotid arteries were obtained. The degree of vessel stenosis is placed in one of the following categories: normal, <50%, 5 0-69%, >=70% but less than near-occlusion, near-occlusion, or total occlusion. Note that percent sten osis relative to normal distal artery lumen diameter is indirectly measured from velocity measurement s as described by Lefty, et al. Radiology 2003; 229:340-346. COMPARISON: None. FINDINGS: RIGHT: The right common carotid artery (CCA) peak systolic velocity (PSV) is 109 cm/s. The right internal ca rotid artery (ICA) PSV is 160 cm/s. The right ICA end-diastolic velocity (EDV) is 49 cm/s. The right ICA/CCA PSV ratio is 1.5. Grayscale and color Doppler images yield an estimate of >=50%% diameter red uction from plaque in the ICA. There is antegrade flow in the right vertebral artery. LEFT: The left CCA PSV is 96 cm/s. The left ICA PSV is 112 cm/s. The left ICA EDV is 47 cm/s. The left ICA/ CCA PSV ratio is 1.2. Grayscale and color Doppler images yield an estimate of <50% diameter reduction from plaque in the ICA. There is antegrade flow in the left vertebral artery. IMPRESSION: 1. 50-69% stenosis in the right internal carotid artery. 2. <50% stenosis in the left internal carotid artery. Reviewed, dictated and finalized at location B.
--- NOTE | ~2021-01-20 | MR_ITS ---
EXAMINATION: MR brain/brain stem wo con DATE: 01/21/2021 14:09 INDICATION: Altered mental status. TECHNIQUE: Magnetic resonance imaging (MRI) of the brain and brainstem was performed without intraven ous contrast. Sequences included sagittal and axial T1-weighted FSE, axial diffusion-weighted FS EPI, axial T2*-weighted GRE, axial T2-weighted FLAIR Propeller, and axial T2-weighted Propeller. Apparent diffusion coefficient (ADC) maps were created. COMPARISON: Head CT 01/20/2021 FINDINGS: There are scattered areas of nonspecific increased T2-weighted signal intensity in the cere bral white matter, which is within normal limits for the patient's age. There is no intracranial hemo rrhage, acute infarction, or abnormal intracranial mass lesion. There are likely changes of ocular le ns replacement surgeries. The paranasal sinuses are clear. The mastoid air cells are normal. IMPRESSION: 1. Normal aging brain. Reviewed, dictated and finalized at location B. IMPRESSION: 1. Normal aging brain.
--- NOTE | ~2021-01-20 | XR_ITS ---
EXAMINATION: XR chest 1V portable DATE: 01/20/2021 18:11 INDICATION: Confusion. TECHNIQUE: A single frontal view of the chest was obtained. COMPARISON: Chest 2 views 09/21/2019, chest CT 12/02/2020 FINDINGS: The chest demonstrates clear lungs without pneumonia, pleural effusion, or pneumothorax. Th e heart size is normal. There is a moderate-sized hiatal hernia. IMPRESSION: 1. Moderate-sized hiatal hernia. Reviewed, dictated and finalized at location A.
--- NOTE | ~2021-01-20 | US_ITS ---
EXAMINATION: US pelvic limited DATE: 01/22/2021 11:15 INDICATION: Dysuria. Urinary retention. TECHNIQUE: Multiple transabdominal sonographic images of the pelvis were obtained. COMPARISON: Pelvis CT 04/18/2020 FINDINGS: The bladder is not well distended. There is a Bundy catheter in expected position. IMPRESSION: 1. Bundy catheter in expected position. Reviewed, dictated and finalized at location B.
[2021-01-20 16:17] VITALS: BP 156/89; PULSE 92; RESP 18; TEMP 36.3; O2SAT 99
--- NOTE | 2021-01-20 16:25 | ED.GENADULT ---
HPI - General Adult General Chief complaint: Urogenital-Female Stated complaint: UTI Symptoms Time Seen by Provider: 01/20/21 16:24 Source: patient, family and RN notes reviewed Mode of arrival: ambulatory Limitations: altered mental status History of Present Illness HPI narrative: Patient 65 years old white female brought to the emergency room by her son because of confusion for the last few weeks, burning urination for the last few days. Patient denies any fever, chills, nausea, vomiting, chest pain, shortness of breath, back pain, headache, focal neuro deficit. Patient reports usually get confusion with urinary tract infection. Patient is status post left elbow surgery, he got discharged from [facility] today, then her son noticed that she is confused that is why he brought her to our emergency room. Related Data Home Medications Medication Instructions Recorded Confirmed Calcium Gummies 500 mg PO DAILY 09/21/19 10/03/20 Melatonin 10 mg PO HS 09/21/19 10/03/20 Vitamin D 25 mcg PO DAILY 09/21/19 10/03/20 Xiidra 1 drp OPHTHALMIC (EYE) HS 09/21/19 10/03/20 atorvastatin 40 mg PO DAILY 09/21/19 10/03/20 famotidine 20 mg PO DAILY 09/21/19 10/03/20 hydrocodone-acetaminophen 1 tablet PO Q4-6H PRN 09/21/19 10/03/20 olmesartan 40 mg PO DAILY 09/21/19 10/03/20 pantoprazole 20 mg PO BID 09/21/19 10/03/20 sertraline 200 mg PO DAILY 09/21/19 10/03/20 travoprost [Travatan Z] 1 drp HS 09/21/19 10/03/20 Women's 50 Plus Multivitamin 1 tablet PO DAILY 09/22/19 10/03/20 cyclobenzaprine 10 mg PO TID PRN 09/22/19 10/03/20 fluticasone propionate 2 spray INTRANASAL BID 09/22/19 10/03/20 azilsartan medoxomil 40 mg tablet 40 mg PO DAILY 11/02/19 10/03/20 trazodone 100 mg tablet 150 mg PO HS tablet 02/01/20 10/03/20 clonidine 0.3 mg/24 hr weekly 1 patch TRANSDERMAL WEEKLY 10/03/20 10/03/20 transdermal patch omega-3 fatty acids 1,000 mg 1,000 mg PO DAILY 10/03/20 10/03/20 capsule Adults Multivitamin 1 tablet PO DAILY 12/02/20 12/03/20 Xiidra 1 drp DAILY 12/02/20 12/03/20 Yogurt Plus Calcium Gummies 1 tablet PO DAILY 12/02/20 12/03/20 amlodipine 10 mg PO DAILY 12/02/20 12/03/20 atorvastatin 40 mg PO DAILY 12/02/20 12/03/20 azilsartan medoxomil 40 mg PO DAILY 12/02/20 12/03/20 calcium carbonate-vitamin D3 1 tablet PO DAILY 12/02/20 12/03/20 [Calcium with Vitamin D] carvedilol 25 mg PO BID 12/02/20 12/03/20 clonidine 1 patch TRANSDERMAL WEEKLY 12/02/20 12/03/20 cyclobenzaprine 10 mg PO TID PRN 12/02/20 12/03/20 diphenhydramine HCl 25 mg PO TID PRN 12/02/20 12/03/20 famotidine 20 mg PO DAILY 12/02/20 12/03/20 fluticasone propionate 2 spray INTRANASAL DAILY 12/02/20 12/03/20 gabapentin 300 mg PO TID 12/02/20 12/03/20 hydrocodone-acetaminophen 1 tablet PO Q4H PRN 12/02/20 12/03/20 levothyroxine 25 mcg PO DAILY 12/02/20 12/03/20 melatonin 10 mg PO HS PRN 12/02/20 12/03/20 olmesartan 40 mg PO DAILY 12/02/20 12/03/20 pantoprazole 20 mg PO BID 12/02/20 12/03/20 sertraline 200 mg PO DAILY 12/02/20 12/03/20 travoprost [Travatan Z] 1 drp DAILY 12/02/20 12/03/20 trazodone 150 mg PO HS 12/02/20 12/02/20 Allergies Allergy/AdvReac Type Severity Reaction Status Date / Time meperidine Allergy Mild Unknown Verified 01/20/21 16:25 morphine Allergy Mild Unknown Verified 01/20/21 16:25 Penicillins Allergy Mild Unknown Verified 01/20/21 16:25 hydromorphone AdvReac Unknown Nausea Verified 01/20/21 16:25 Review of Systems Review of Systems: Narrative: CONSTITUTIONAL: Denies fever, chills, or sweats. EYES: Denies visual changes, redness, or discharge. ENT: Denies rhinorrhea, congestion, sore throat, or otalgia. CARDIOVASCULAR: Denies chest pain, palpitations, or edema. RESPIRATORY: Denies cough or dyspnea. GASTROINTESTINAL: Denies abdominal pain, nausea, vomiting, or diarrhea. GENITOURINARY: Denies dysuria or hematuria. SKIN: Denies rash or itching. MUSCULOSKELETAL: Denies back pain, joint pain, or myalgia. NEUROLOGIC: Denies headache, numbness, or weakness. P
[2021-01-20 16:42] LABS: Basophils Percent Auto 0.3 % (0.2-1.2); Eosinophils Absolute Auto 0.2 K/mm3 (0-0.3); Eosinophils Percent Auto 2.1 % (0-4.4); Hematocrit 35.4 % (37.0-47.0); Hemoglobin 11.3 g/dL (12.0-15.0); Immature Granulocyte Absolute 0.06 K/mm3 (0.00-0.031); Immature Granulocyte Percent A 0.6 % (0-0.5); Lymphocytes Absolute Auto 1.21 K/mm3 (0.9-3.2); Lymphocytes Percent Auto 12.1 % (18.3-44.2); Mean Corpuscular HGB Conc 31.9 g/dl (32-36); Mean Corpuscular Hemoglobin 26.8 pg (26-34); Mean Corpuscular Volume 84.1 fl (80-100); Mean Platelet Volume 9.8 fl (7.4-10.4); Monocytes Absolute Auto 0.5 K/mm3 (0.1-0.6); Monocytes Percent Auto 5.4 % (2.6-8.5); Neutrophils Absolute Auto 7.9 K/mm3 (1.3-6.7); Neutrophils Percent Auto 79.5 % (45.5-73.1); Platelet Count Result 370 k/mm3 (150-375); Red Blood Count 4.21 M/mm3 (4.2-5.4); Red Cell Distribution Width 14.2 % (11.5-14.5)
[2021-01-20 16:52] LABS: Alanine Aminotransferase 24 U/L (4-35); Albumin Level 4.6 g/dL (3.5-5.1); Alkaline Phosphatase 133 U/L (38-126); Anion Gap 6 mmol/L (8-16); Aspartate Amino Transferase 40 U/L (14-36); Bilirubin,Total 0.2 mg/dL (0.2-1.3); Blood Urea Nitrogen 25 mg/dL (7-17); Calcium 9.9 mg/dL (8.4-10.2); Carbon Dioxide 33 mmol/L (22-30); Chloride 101 mmol/L (98-107); Estimated CRCL calculation 60 ml/min; Estimated Glomerular Filt Rate > 60; Glucose 156 mg/dL (65-105); Potassium 3.9 mmol/L (3.4-5.0); Sodium 140 mmol/L (137-145)
[2021-01-20 17:05] LABS: Add Urine Microscopic? YES; Appearance Urine Clear (Clear); Bacteria Urine Trace /hpf; Bilirubin Urine Negative (Negative); Blood Urine Negative (Negative); Color Urine Yellow (Yellow); Glucose Urine UA Negative (Negative); Ketones Urine Negative (Negative); Leukocyte Esterase Ur Negative LEU/UL (Negative); Mucus Urine Rare /lpf; Nitrate Urine Negative (Negative); Protein Urine Negative (Negative); RBC Urine 0-2 /hpf (0-2); Specific Grav Ur 1.017 (1.001-1.035); Squamous Epithelial Cell Urine Rare /hpf (Few); Urobilinogen Urine Negative mg/dL (<2.0); WBC Urine 0-3 /hpf
--- NOTE | 2021-01-20 17:47 | ECG_ITS ---
Measurements Intervals Donie Rate: 90 P: 64 MO: 147 QRS: 27 QRSD: 93 T: 51 QT: 360 QTc: 442 Interpretive Statements SINUS RHYTHM EARLY PRECORDIAL R/S TRANSITION BASELINE ARTIFACT- I, II, III, AVR, AVL, AVF, V1-V2 BORDERLINE ECG Electronically Signed On 01-20-2021 19:19:23 CDT by Jorge Salazar D.O.
--- NOTE | 2021-01-20 17:51 | PC.NURSE ---
Called lab and added on a CK, TSH, PT/INR, PTT
[2021-01-20 18:12] LABS: Creatine Kinase 67 U/L (30-135)
[2021-01-20 18:19] LABS: INR 0.9; Prothrombin Time 12.8 Seconds (11.1-14.7)
[2021-01-20 18:20] LABS: Partial Thromboplastin Time 28.1 SECONDS (22.3-36.8)
[2021-01-20] MEDS: SODIUM CHLORIDE 0.9% IV 1,000 ML 999 ML IV CONT (18:23)
[2021-01-20 19:38] VITALS: BP 160/70; PULSE 99; RESP 14; O2SAT 97
[2021-01-20 19:49] LABS: Amphetamine Screen Urine Negative (Negative); Barbiturate Screen Urine Negative (Negative); Benzodiazepines Screen Urine Negative (Negative); Cannabinoid Screen Urine Negative (Negative); Cocaine Screen Urine Negative (Negative); Methadone Screen Urine Negative (Negative); Opiate Screen Urine Negative (Negative); Phencyclidine Screen Urine Negative (Negative)
[2021-01-20 21:00] VITALS: BP 129/74; PULSE 93; RESP 18; TEMP 36.6; O2SAT 97
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
--- NOTE | 2021-01-20 23:16 | ADMGEN ---
This patient, Katie Spain, was admitted to [facility] Surg Room 306-01. Patient/family oriented to hospital policies and general routines including ID bracelet, bed and alarms, visiting hours, pain management, procedures, bathroom and other care routines, personal items, smoking policy, room service/diet, and visiting hours. Information on how to activate the Rapid Response Team has been discussed. Patient/Family are encouraged to report perceived risks to care and to ask questions if they do not understand what they are told or what they should do.
[2021-01-21] VITALS (12 sets, daily range): BP systolic 139–192; BP diastolic 73–92; PULSE 78–142; RESP 18–20; TEMP 36.2–37; O2SAT 96–98
--- NOTE | 2021-01-21 | ECHO_ITS ---
Patient Info Name: Katie Spain Age: 65 years : 1955 Gender: Female Ht: 66 in Wt: 200 lbs BSA: 2.09 m2 HR: 84 bpm BP: 167 / 92 mmHg Heart Rhythm: Sinus Rhythm Exam Date: 01/21/2021 10:14 AM Exam Location: [facility] Patient Status: Inpatient Admit Date: 01/20/2021 Staff Ordering Physician: Gabriela Gallardo NP Broodmare Foreman: ROC Attending Provider: Oswaldo Sultana MD Referring Physician: Sami TRAORE; Exam Type: CA echo doppler color flow Study Info Indications - CONFUSION Complete two-dimensional, color flow and Doppler transthoracic echocardiogram is performed. Summary 1. Complete two-dimensional, color flow and Doppler transthoracic echocardiogram is performed. 2. Left ventricular chamber dimension is normal. 3. Left ventricular systolic function is hyperdynamic, estimated at >70%. 4. There is mildly increased left ventricular wall thickness. 5. The left ventricular diastolic function is grade I diastolic dysfunction. 6. Left atrial chamber dimension is mildly enlarged. 7. There is mild tricuspid valve regurgitation. 8. There is mild pulmonic regurgitation. Left Ventricle Left ventricular chamber dimension is normal. Left ventricular systolic function is hyperdynamic, estimated at >70%. There is mildly increased left ventricular wall thickness. The left ventricular diastolic function is grade I diastolic dysfunction. Right Ventricle Right ventricular chamber dimension is normal. Right ventricular systolic function is normal. Left Atria Left atrial chamber dimension is mildly enlarged. Right Atria Right atrial chamber dimension is normal. Atrial Septum Intact interatrial septum visualized by color flow imaging. Aortic Valve The aortic valve is trileaflet. There is mild aortic valve sclerosis. There is no aortic valve stenosis. There is trace aortic valve regurgitation. Pulmonic Valve The pulmonic valve is normal. There is no pulmonic valve stenosis. There is mild pulmonic regurgitation. Mitral Valve The mitral valve has normal leaflets. There is no mitral valve stenosis. There is trace mitral valve regurgitation. Tricuspid Valve The tricuspid valve leaflets are normal. There is no significant tricuspid valve stenosis. There is mild tricuspid valve regurgitation. No pulmonary hypertension, estimated pulmonary arterial systolic pressure is 32 mmHg. Pericardium/Pleural The pericardium appears normal. There is no pericardial effusion. Inferior Vena Cava Normal inferior vena cava with >50% collapse upon inspiration consistent with normal right atrial pressure, 5 mmHg. Aorta The aortic root size at the sinus of Valsalva is normal. The prox ascending aorta size is normal. Left Ventricular Outflow Tract Name Value Normal LVOT 2D LVOT Diameter 2.4 cm Pulmonic Valve Name Value Normal PV Doppler PV Peak Gradient 5 mmHg Mitral Valve
[2021-01-21 06:09] LABS: Basophils Percent Auto 0.3 % (0.2-1.2); Eosinophils Absolute Auto 0.2 K/mm3 (0-0.3); Eosinophils Percent Auto 2.5 % (0-4.4); Hematocrit 32.6 % (37.0-47.0); Hemoglobin 10.4 g/dL (12.0-15.0); Immature Granulocyte Absolute 0.05 K/mm3 (0.00-0.031); Immature Granulocyte Percent A 0.7 % (0-0.5); Lymphocytes Absolute Auto 1.14 K/mm3 (0.9-3.2); Mean Corpuscular HGB Conc 31.9 g/dl (32-36); Mean Corpuscular Hemoglobin 26.1 pg (26-34); Mean Corpuscular Volume 81.7 fl (80-100); Mean Platelet Volume 9.9 fl (7.4-10.4); Monocytes Absolute Auto 0.5 K/mm3 (0.1-0.6); Monocytes Percent Auto 6.1 % (2.6-8.5); Neutrophils Absolute Auto 5.7 K/mm3 (1.3-6.7); Neutrophils Percent Auto 75.4 % (45.5-73.1); Platelet Count Result 278 k/mm3 (150-375); Red Blood Count 3.99 M/mm3 (4.2-5.4); Red Cell Distribution Width 13.7 % (11.5-14.5); White Blood Count 7.6 K/mm3 (4.5-10.0)
[2021-01-21 06:25] LABS: Alanine Aminotransferase 21 U/L (4-35); Albumin Level 4.2 g/dL (3.5-5.1); Alkaline Phosphatase 110 U/L (38-126); Anion Gap 4 mmol/L (8-16); Aspartate Amino Transferase 30 U/L (14-36); Bilirubin,Total 0.3 mg/dL (0.2-1.3); Blood Urea Nitrogen 19 mg/dL (7-17); Calcium 9.4 mg/dL (8.4-10.2); Carbon Dioxide 31 mmol/L (22-30); Chloride 102 mmol/L (98-107); Estimated CRCL calculation 83 ml/min; Estimated Glomerular Filt Rate > 60; Glucose 104 mg/dL (65-105); Magnesium 2.1 mg/dL (1.6-2.3); Potassium 4.1 mmol/L (3.4-5.0); Sodium 137 mmol/L (137-145)
[2021-01-21] MEDS: ONDANSETRON INJ 4 MG/2 ML VIAL IV PUSH (08:09)
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
--- NOTE | 2021-01-21 11:36 | PM.IMPN ---
Progress Note: A&P Assessment and Plan (1) Encephalopathy: Code(s): G93.40 - Encephalopathy, unspecified Status: Acute Assessment and Plan: Presented with confusion ongoing for 2 weeks. Etiology not clear at this time. She has been evaluated for acute CVA which was ruled out with negative head CT and brain MRI. Metabolic encephalopathy considered, though no electrolyte abnormalities or signs of infection. At this time, she is A&O x4 and answers all questions appropriately. Neurology has been consulted and input is appreciated Monitor electrolytes Limit narcotics and sedating medications to avoid confusion (2) Dysuria: Code(s): R30.0 - Dysuria Status: Acute Assessment and Plan: Presented with complaints of dysuria and urgency. She had urinary retention on presentation and diaz catheter was initiated. UA with no evidence of infection. No leukocytosis or fever. I do not suspect UTI. Continue diaz catheter. Plan for voiding trial upon improvement of mental status Will obtain pelvic US for further evaluation of bladder given symptoms (3) Closed fracture of left elbow: Qualifiers: Encounter type: subsequent encounter Fracture healing: with routine healing Qualified Code(s): S42.402D - Unspecified fracture of lower end of left humerus, subsequent encounter for fracture with routine healing Code(s): S42.402A - Unspecified fracture of lower end of left humerus, initial encounter for closed fracture Status: Acute Assessment and Plan: Recently repaired at [facility]. No further information obtainable from patient or family at this time. Continue splint Appreciate PT/OT eval Records requested from outside hospital (4) Psychiatric illness: Code(s): F99 - Mental disorder, not otherwise specified Status: Acute Assessment and Plan: She has bipolar disorder, depression, anxiety, and schizophrenia. Mood is stable at this time. She did become acutely anxious today while undergoing MRI. Continue sertraline She is not on any antipsychotic agents or anxiolytics (5) Hypertension: Qualifiers: Hypertension type: essential hypertension Qualified Code(s): I10 - Essential (primary) hypertension Code(s): I10 - Essential (primary) hypertension Status: Acute Assessment and Plan: Blood pressures are poorly controlled. Last BP 167/92. Appears BP has been poorly controlled from previous visits and she is on high doses of several antihypertensive agents. Resume home blood pressure medication regimen Monitor BP trends closely and adjust as needed Subjective Date/time seen: 01/21/21 11:36 Interval history: Date of service: 01/21/2021 Katie Spain this 65-year-old female with a history of frequent UTIs, anemia anxiety, bipolar disorder, schizophrenia, hypertension, and hyperlipidemia who is seen in follow-up for urinary symptoms and confusion. She is feeling fairly well today. She tells me that she still feels confused, but notes that it is improved from yesterday. She also complains of rather significant fatigue. She denies dizziness, lightheadedness, or weakness. This morning she felt very nauseous before eating breakfast and stated that she was dry heaving and gagging. She denies any episodes of emesis. She later was able to tolerate her breakfast without difficulty. She is not having any nausea at this time. She denies any unilateral weakness, numbness, or tingling. She does have pain in her left elbow which was recently operated on that she rates as 5/10. She also notes some swelling in her left fingers. She denies abdominal pain. She complains of will dysuria and urgency. She has a Diaz catheter in place but continues to state that she needs to urinate. She denies lower extremity edema. She has a faint headache in the occipital region. She denies any visual changes. No speech ratliff
[2021-01-21] MEDS: LORazepam (*CRX) 0.5 MG TABLET PO (13:21)
--- NOTE | 2021-01-21 16:49 | PC.NURSE ---
PA notified of elevated pt BP 180s/70s at 1410. PA requested recheck in one hour. PT BP at 1515 192/97. Called Rhona to inform. She will restart home meds shortly This RN requested home meds from family at 1020. Pt family unaware. Called facility pt d/c'ed from on 01/20. Recvd fax at 1400. Medications completed at 1500 for reconciliation by provider.
[2021-01-21] MEDS: HYDROcodone/acetaminophen (*CRX) 5-325 MG TABLET 1 TAB PO (16:53)
[2021-01-21] MEDS: OLMESARTAN MEDOXOMIL 20 MG TABLET 40 MG PO (16:55)
[2021-01-21] MEDS: ASPIRIN 325 MG TABLET PO (16:56)
[2021-01-21] MEDS: hydrALAZINE HCL 25 MG TABLET 75 MG PO (16:57)
[2021-01-21] MEDS: SENNA/DOCUSATE SODIUM TABLET 1 TAB PO (16:57)
[2021-01-21] MEDS: carvediloL 25 MG TABLET PO (16:57)
[2021-01-21] MEDS: ACETAMINOPHEN 325 MG TABLET 650 MG PO (21:20)
[2021-01-22] VITALS (14 sets, daily range): BP systolic 157–177; BP diastolic 70–82; PULSE 71–92; RESP 18–20; TEMP 36.9–37.2; O2SAT 95–99
[2021-01-22] MEDS: ONDANSETRON INJ 4 MG/2 ML VIAL IV PUSH ×4 (00:38→20:39)
--- NOTE | 2021-01-22 01:40 | PC.NURSE ---
Patient slept for a few hours after given PRN tylenol. She woke up around 00:15 and used her call light about 10 times for various things, Gabriela put an order for melatonin in to help her sleep. She then began to vomit and dry heave, I gave her the PRN zofran and it took her about an hour to calm down. She continually states I have to pee .. and cannot be rerouted when explained to that she has a diaz. She only vomited <50ml but was running a slight temperature of 99.0F. Will administer PRN tylenol again as well as ordered melatonin. -KEO TARIQ
[2021-01-22] MEDS: ACETAMINOPHEN 325 MG TABLET 650 MG PO ×2 (01:44→08:26)
[2021-01-22] MEDS: MELATONIN 3 MG TABLET PO ×2 (01:44→20:40)
[2021-01-22 06:22] LABS: Hematocrit 35.6 % (37.0-47.0); Hemoglobin 11.2 g/dL (12.0-15.0); Mean Corpuscular HGB Conc 31.5 g/dl (32-36); Mean Corpuscular Hemoglobin 26.2 pg (26-34); Mean Corpuscular Volume 83.4 fl (80-100); Mean Platelet Volume 9.9 fl (7.4-10.4); Platelet Count Result 315 k/mm3 (150-375); Red Blood Count 4.27 M/mm3 (4.2-5.4); White Blood Count 8.8 K/mm3 (4.5-10.0)
[2021-01-22 06:32] LABS: Anion Gap 7 mmol/L (8-16); Blood Urea Nitrogen 17 mg/dL (7-17); Calcium 9.7 mg/dL (8.4-10.2); Carbon Dioxide 29 mmol/L (22-30); Chloride 102 mmol/L (98-107); Estimated CRCL calculation 83 ml/min; Estimated Glomerular Filt Rate > 60; Glucose 122 mg/dL (65-105); Potassium 3.8 mmol/L (3.4-5.0); Sodium 138 mmol/L (137-145)
[2021-01-22] MEDS: hydrALAZINE HCL 25 MG TABLET 75 MG PO ×2 (08:23→17:33)
[2021-01-22] MEDS: PANTOPRAZOLE 40 MG TABLET PO (08:24)
[2021-01-22] MEDS: carvediloL 25 MG TABLET PO ×2 (08:24→17:34)
[2021-01-22] MEDS: ASPIRIN 325 MG TABLET PO ×2 (08:24→17:33)
[2021-01-22] MEDS: SERTRALINE HCL 50 MG TABLET 200 MG PO (08:24)
[2021-01-22] MEDS: ATORVASTATIN 40 MG TABLET PO (08:25)
[2021-01-22] MEDS: amLODIPine BESYLATE 5 MG TABLET 10 MG PO (08:25)
[2021-01-22] MEDS: SENNA/DOCUSATE SODIUM TABLET 1 TAB PO ×2 (08:25→17:33)
[2021-01-22] MEDS: OLMESARTAN MEDOXOMIL 20 MG TABLET 40 MG PO (08:25)
--- NOTE | 2021-01-22 11:02 | PC.NURSE ---
to ultrasound per stretcher
--- NOTE | 2021-01-22 11:26 | PC.NURSE ---
patient returned to room from ultrasound
--- NOTE | 2021-01-22 15:47 | PM.IMPN ---
Progress Note: A&P Assessment and Plan (1) Encephalopathy: Code(s): G93.40 - Encephalopathy, unspecified Status: Acute Assessment and Plan: Presented with confusion ongoing for 4-5 days. She was evaluated for acute CVA which was ruled out with negative head CT and brain MRI. Metabolic encephalopathy considered, though no electrolyte abnormalities or signs of infection. At this time, she is A&O x4 and answers all questions appropriately. No confusion noted on my exam. Neurology has been consulted and input is appreciated Monitor electrolytes Limit narcotics and sedating medications to avoid confusion (2) Dysuria: Code(s): R30.0 - Dysuria Status: Acute Assessment and Plan: Presented with complaints of dysuria and urgency. She had urinary retention on presentation and diaz catheter was initiated. UA with no evidence of infection. No leukocytosis or fever. No evidence of bladder wall thickening or abnormality noted on pelvic US. Discontinue Diaz catheter and proceed with voiding trial. Monitor clinically (3) Closed fracture of left elbow: Qualifiers: Encounter type: subsequent encounter Fracture healing: with routine healing Qualified Code(s): S42.402D - Unspecified fracture of lower end of left humerus, subsequent encounter for fracture with routine healing Code(s): S42.402A - Unspecified fracture of lower end of left humerus, initial encounter for closed fracture Status: Acute Assessment and Plan: Recently repaired at [facility] 3 weeks ago. Continue splint Appreciate PT/OT eval Follow up with orthopedic surgeon, Dr. Nova, [facility] as previously scheduled (4) Psychiatric illness: Code(s): F99 - Mental disorder, not otherwise specified Status: Acute Assessment and Plan: She has bipolar disorder, depression, anxiety, and schizophrenia. She is not on any antipsychotic medications. Consider F untreated psychiatric disorder is contributing to some of her symptoms that appear to family as confusion/forgetfulness. Continue sertraline She is not on any antipsychotic agents or anxiolytics. She needs to resume care with her psychiatrist for further evaluation and treatment. (5) Hypertension: Qualifiers: Hypertension type: essential hypertension Qualified Code(s): I10 - Essential (primary) hypertension Code(s): I10 - Essential (primary) hypertension Status: Acute Assessment and Plan: Blood pressures reviewed and elevated above target. Seem to be improving today. Last BP 157/71. Continue home blood pressure medication regimen Monitor BP trends closely and adjust as needed Subjective Date/time seen: 01/22/21 15:47 Interval history: Date of service: 01/22/2021 Katie Spain this 65-year-old female with a history of frequent UTIs, anemia anxiety, bipolar disorder, schizophrenia, hypertension, and hyperlipidemia who is seen in follow-up for urinary symptoms and confusion. She reports feeling better today. She complains of nausea but has not had any episodes of emesis. She is tolerating her diet without difficulty. She denies any issues with her Diaz catheter at this time. She continues to feel the urge to urinate despite catheter. She denies abdominal pain, flank pain, back pain, fever, chills, dizziness, lightheadedness. No shortness of breath, cough, chest pain. She continues to state that she feels confused but answers all questions appropriately. I spoke with patients son, Caleb, via phone to provide updates and answer questions. Review of Systems Review of Systems: All systems reviewed & are unremarkable except as noted in HPI and below Exam Narrative: Exam Narrative: Ms. Spain is a well-nourished, chronically ill-appearing 65-year-old female who is lying supine in bed. She appears comfortable and is in NARD. Neuro: awake, alert a
[2021-01-22 18:55] LABS: SARS-CoV-2 RNA PCR Negative
[2021-01-22] MEDS: HYDROcodone/acetaminophen (*CRX) 5-325 MG TABLET 1 TAB PO (20:44)
[2021-01-22] MEDS: LORazepam INJ (*CRX) 2 MG/ML VIAL 0.5 MG IV PUSH (22:13)
--- NOTE | 2021-01-22 22:27 | PC.NURSE ---
01/22/212134- patient yelling out out, requesting nausea medication multiple times after giving the zofran still asking for it. complains of inability to sleep, melatonin given as ordered but patient states that it doesn't work but still wants to recieve it, also complains of left elbow pain. sling to left arm intact. spoke with [employer]NAG[employer] MANAGER hospitalist, new orders received at this time. LuisRTAHIRA
[2021-01-23] VITALS (7 sets, daily range): BP systolic 152; BP diastolic 76; PULSE 80–96; RESP 20; TEMP 37.2; O2SAT 98
[2021-01-23] MEDS: ONDANSETRON INJ 4 MG/2 ML VIAL IV PUSH ×2 (03:39→09:24)
[2021-01-23 06:20] LABS: Hematocrit 32.5 % (37.0-47.0); Hemoglobin 10.3 g/dL (12.0-15.0); Mean Corpuscular HGB Conc 31.7 g/dl (32-36); Mean Corpuscular Volume 82.1 fl (80-100); Mean Platelet Volume 9.9 fl (7.4-10.4); Platelet Count Result 316 k/mm3 (150-375); Red Blood Count 3.96 M/mm3 (4.2-5.4); White Blood Count 9.3 K/mm3 (4.5-10.0)
[2021-01-23 06:33] LABS: Anion Gap 5 mmol/L (8-16); Blood Urea Nitrogen 22 mg/dL (7-17); Calcium 9.3 mg/dL (8.4-10.2); Carbon Dioxide 32 mmol/L (22-30); Chloride 101 mmol/L (98-107); Estimated CRCL calculation 59 ml/min; Estimated Glomerular Filt Rate 56; Glucose 108 mg/dL (65-105); Potassium 3.8 mmol/L (3.4-5.0); Sodium 138 mmol/L (137-145)
[2021-01-23] MEDS: HYDROcodone/acetaminophen (*CRX) 5-325 MG TABLET 1 TAB PO (08:30)
[2021-01-23] MEDS: SERTRALINE HCL 50 MG TABLET 200 MG PO (08:31)
[2021-01-23] MEDS: PANTOPRAZOLE 40 MG TABLET PO (08:31)
[2021-01-23] MEDS: ATORVASTATIN 40 MG TABLET PO (08:31)
[2021-01-23] MEDS: carvediloL 25 MG TABLET PO (08:31)
[2021-01-23] MEDS: OLMESARTAN MEDOXOMIL 20 MG TABLET 40 MG PO (08:32)
[2021-01-23] MEDS: amLODIPine BESYLATE 5 MG TABLET 10 MG PO (08:32)
[2021-01-23] MEDS: hydrALAZINE HCL 25 MG TABLET 75 MG PO (08:32)
[2021-01-23] MEDS: SENNA/DOCUSATE SODIUM TABLET 1 TAB PO (08:33)
[2021-01-23] MEDS: ASPIRIN 325 MG TABLET PO (08:33)
--- NOTE | 2021-01-23 12:01 | PM.DS ---
DS: Admitting Diagnosis Admitting Diagnosis Admitting Diagnosis: Encephalopathy DS: Discharge Diagnosis Discharge Diagnosis (1) Encephalopathy: Code(s): G93.40 - Encephalopathy, unspecified Status: Acute Assessment and Plan: Resolved. Presented with confusion ongoing for 4-5 days prior to admission. She was evaluated for acute CVA which was ruled out with negative head CT and brain MRI. No evidence of infection or electrolyte abnormalities. She did not demonstrate any signs of confusion on my exam and was A&Ox4. Seen in consultation by Neurology. Recommend follow up with PCP to discuss weaning home trazodone and roxicodone to limit confusion and sedation. (2) Dysuria: Code(s): R30.0 - Dysuria Status: Acute Assessment and Plan: Presented with complaints of dysuria and urgency. She had urinary retention on presentation and diaz catheter was initiated. UA with no evidence of infection. No leukocytosis or fever. No evidence of bladder wall thickening or abnormality noted on pelvic US. Diaz catheter discontinued and voiding trial successful. Urinary symptoms resolved. (3) Closed fracture of left elbow: Qualifiers: Encounter type: subsequent encounter Fracture healing: with routine healing Qualified Code(s): S42.402D - Unspecified fracture of lower end of left humerus, subsequent encounter for fracture with routine healing Code(s): S42.402A - Unspecified fracture of lower end of left humerus, initial encounter for closed fracture Status: Acute Assessment and Plan: Recently repaired at [facility] 3 weeks ago. Continue splint and follow up with orthopedic surgeon, Dr. Nova, [facility] as previously scheduled. She will continue therapy at SNF. (4) Psychiatric illness: Code(s): F99 - Mental disorder, not otherwise specified Status: Acute Assessment and Plan: She has bipolar disorder, depression, anxiety, and schizophrenia. She is not on any antipsychotic medications. She will be evaluated by psychiatry at nursing facility for further management (5) Hypertension: Qualifiers: Hypertension type: essential hypertension Qualified Code(s): I10 - Essential (primary) hypertension Code(s): I10 - Essential (primary) hypertension Status: Acute Assessment and Plan: Blood pressures reviewed and were elevated above target. On review, it appears she has long standing poorly controlled hypertension and is on high doses of antihypertensives. BP improved throughout stay. Continue home regimen. Follow up with PCP for further monitoring. DS: Summary Hospital Course Reason for hospitalization: Confusion Hospital Course: Date of admission: 01/20/2021 Date of discharge: 01/23/2021 Katie Spain this 65-year-old female with a history of frequent UTIs, anemia anxiety, bipolar disorder, schizophrenia, hypertension, and hyperlipidemia who presented to the emergency department on 01/20/2021 with complaints of dysuria and confusion/forgetfulness over the past few days. She had just been discharged from [facility] where she was receiving postop care for left elbow surgery. Upon presentation to the emergency department, her BP was elevated at 150 6/89 with additional vital signs stable, she had mild anemia, CO2 level slightly elevated with additional electrolytes stable, UA without any signs of infection, urine drug screen negative, and head CT negative for acute findings. She was admitted to the hospitalist service for further evaluation and management and seen in consultation by Neurology. Please see above for further details. Her symptoms improved significantly and she was at her baseline. Given her overall improvement, she was determined to no longer require inpatient care and felt to be stable for discharge. I spoke with her son via phone who agreed with the plan. We discussed worrisome signs and sympt
== END 2021-01-23 14:00 ==
LOC: ANHED 17:39 → ANH3MEDSUR 20:19
PROVIDERS: Nurse Practitioner; Physician Assistant; Admitting Provider Internal Medicine; Emergency Provider Emergency Medicine; PCP Family Medicine; Visit Provider Internal Medicine
DX: G93.40 Encephalopathy, unspecified (principal); S42.402D Unspecified fracture of lower end of left humerus, subsequent encounter for fracture with routine healing; Z87.891 Personal history of nicotine dependence; R33.9 Retention of urine, unspecified; F99 Mental disorder, not otherwise specified; E78.5 Hyperlipidemia, unspecified; I10 Essential (primary) hypertension; W06.XXXD Fall from bed, subsequent encounter; R30.0 Dysuria; F31.9 Bipolar disorder, unspecified; F41.8 Other specified anxiety disorders; D64.9 Anemia, unspecified; R11.0 Nausea; I65.23 Occlusion and stenosis of bilateral carotid arteries; K21.9 Gastro-esophageal reflux disease without esophagitis; Z79.899 Other long term (current) drug therapy; Z20.822 Contact with and (suspected) exposure to COVID-19
CPT/HCPCS: 36415; 51701; 70450; 70551; 71045; 76857; 80048; 80053; 80307; 81001; 82550; 83735; 84443; 85025; 85027; 85610; 85730; 92523; 93005; 93306; 93880; 96361; 96374; 96375; 96376; 97110; 97116; 97161; 97165; 97535; 99285; A9270; C9803; G0378; J0131; J2060; J2405; J7030; U0003; U0005

== ENCOUNTER 2021-02-11 04:38 | Emergency (ER) | payer MEDICARE, MEDICAID, SELFPAY ==
[2021-02-11] VITALS (13 sets, daily range): BP systolic 132–203; BP diastolic 69–99; PULSE 76–99; RESP 16–18; TEMP 36.6; O2SAT 97–100
--- NOTE | ~2021-02-11 | XR_ITS ---
EXAMINATION: XR elbow LT min 3V DATE: 02/11/2021 05:31 INDICATION: Left elbow pain. Fall. TECHNIQUE: 4 views of left elbow were obtained. COMPARISON: Left elbow radiographs 11/30/2020 FINDINGS: There is a transverse fracture of olecranon with 2.9 cm distraction. There is a lag screw w ith washer at the distal fracture fragment. There is mild elbow joint osteoarthritis. There is no elb ow joint effusion. IMPRESSION: 1. Transverse fracture of olecranon with failed internal fixation, now with 2.9 cm distraction. 2. Elbow joint effusion. Reviewed, dictated and finalized at location A.
[2021-02-11] MEDS: HYDROcodone/acetaminophen (*CRX) 5-325 MG TABLET 1 TAB PO (05:09)
[2021-02-11 05:32] LABS: Basophils Percent Auto 0.3 % (0.2-1.2); Eosinophils Absolute Auto 0.2 K/mm3 (0-0.3); Hematocrit 35.2 % (37.0-47.0); Hemoglobin 10.9 g/dL (12.0-15.0); Immature Granulocyte Absolute 0.06 K/mm3 (0.00-0.031); Immature Granulocyte Percent A 0.5 % (0-0.5); Lymphocytes Absolute Auto 1.22 K/mm3 (0.9-3.2); Lymphocytes Percent Auto 10.4 % (18.3-44.2); Mean Corpuscular Hemoglobin 25.5 pg (26-34); Mean Corpuscular Volume 82.4 fl (80-100); Mean Platelet Volume 9.6 fl (7.4-10.4); Monocytes Absolute Auto 0.7 K/mm3 (0.1-0.6); Neutrophils Absolute Auto 9.5 K/mm3 (1.3-6.7); Neutrophils Percent Auto 80.8 % (45.5-73.1); Platelet Count Result 311 k/mm3 (150-375); Red Blood Count 4.27 M/mm3 (4.2-5.4); Red Cell Distribution Width 14.1 % (11.5-14.5); White Blood Count 11.7 K/mm3 (4.5-10.0)
[2021-02-11 05:38] LABS: Add Urine Microscopic? YES; Appearance Urine Clear (Clear); Bilirubin Urine Negative (Negative); Blood Urine Negative (Negative); Color Urine Yellow (Yellow); Glucose Urine UA Negative (Negative); Ketones Urine Negative (Negative); Leukocyte Esterase Ur Negative LEU/UL (Negative); Mucus Urine Rare /lpf; Nitrate Urine Negative (Negative); Protein Urine Negative (Negative); Specific Grav Ur 1.013 (1.001-1.035); Squamous Epithelial Cell Urine Rare /hpf (Few); Urobilinogen Urine Negative mg/dL (<2.0); WBC Urine 0-3 /hpf
[2021-02-11 05:55] LABS: Anion Gap 8 mmol/L (8-16); Blood Urea Nitrogen 17 mg/dL (7-17); Calcium 9.8 mg/dL (8.4-10.2); Carbon Dioxide 32 mmol/L (22-30); Chloride 100 mmol/L (98-107); Estimated Glomerular Filt Rate > 60; Glucose 106 mg/dL (65-105); Sodium 140 mmol/L (137-145)
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
== END 2021-02-11 09:59 ==
PROVIDERS: Emergency Provider Emergency Medicine; PCP Family Medicine
DX: M25.522 Pain in left elbow (principal); E78.5 Hyperlipidemia, unspecified; I10 Essential (primary) hypertension; K21.9 Gastro-esophageal reflux disease without esophagitis; F41.1 Generalized anxiety disorder; F31.9 Bipolar disorder, unspecified; H40.9 Unspecified glaucoma; M19.90 Unspecified osteoarthritis, unspecified site; D64.9 Anemia, unspecified; Z87.440 Personal history of urinary (tract) infections; Z79.82 Long term (current) use of aspirin; W01.0XXA Fall on same level from slipping, tripping and stumbling without subsequent striking against object, initial encounter; Z98.49 Cataract extraction status, unspecified eye; Z96.651 Presence of right artificial knee joint
CPT/HCPCS: 36415; 73080; 80048; 81001; 85025; 99283; A9270

== ENCOUNTER 2021-03-29 09:26 | Emergency (ER) | payer MEDICARE, MEDICAID, SELFPAY ==
[2021-03-29 09:34] VITALS: BP 172/77; PULSE 73; RESP 20; TEMP 36.3; O2SAT 97
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
== END 2021-03-29 10:04 | disposition home or self-care (01) ==
PROVIDERS: Emergency Provider Nurse Practitioner; PCP Family Medicine
DX: R30.0 Dysuria (principal); Z87.891 Personal history of nicotine dependence; D64.9 Anemia, unspecified; M54.9 Dorsalgia, unspecified; G89.29 Other chronic pain; Z87.440 Personal history of urinary (tract) infections; K21.9 Gastro-esophageal reflux disease without esophagitis; H40.9 Unspecified glaucoma; I20.9 Angina pectoris, unspecified; E78.5 Hyperlipidemia, unspecified; I10 Essential (primary) hypertension; M19.90 Unspecified osteoarthritis, unspecified site; Z98.49 Cataract extraction status, unspecified eye; Z96.651 Presence of right artificial knee joint
CPT/HCPCS: 81003; 87086; 87088; 99213; G0463

== ENCOUNTER 2021-04-22 09:13 | Emergency (ER) | payer MEDICARE, MEDICAID, SELFPAY ==
[2021-04-22 09:28] VITALS: BP 104/45; PULSE 73; RESP 18; TEMP 36.1; O2SAT 97
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
== END 2021-04-22 09:50 | disposition home or self-care (01) ==
PROVIDERS: Emergency Provider Nurse Practitioner; PCP Family Medicine
DX: N30.00 Acute cystitis without hematuria (principal); Z87.891 Personal history of nicotine dependence; D64.9 Anemia, unspecified; K21.9 Gastro-esophageal reflux disease without esophagitis; H40.9 Unspecified glaucoma; I20.9 Angina pectoris, unspecified; E78.5 Hyperlipidemia, unspecified; I10 Essential (primary) hypertension; M19.90 Unspecified osteoarthritis, unspecified site; F32.9 Major depressive disorder, single episode, unspecified; F41.1 Generalized anxiety disorder; Z96.651 Presence of right artificial knee joint; Z98.42 Cataract extraction status, left eye; Z98.41 Cataract extraction status, right eye
CPT/HCPCS: 81003; 87077; 87086; 87186; 99213; G0463

== ENCOUNTER 2021-04-25 09:27 | Emergency (ER) | payer MEDICARE, MEDICAID, SELFPAY ==
[2021-04-25 09:57] VITALS: BP 102/61; PULSE 72; RESP 14; TEMP 36.2; O2SAT 96
[2021-04-25 13:12] VITALS: BP 125/68; PULSE 73; RESP 16; TEMP 36.2; O2SAT 96
[2021-04-25 13:44] LABS: Basophils Percent Auto 0.4 % (0.2-1.2); Eosinophils Absolute Auto 0.2 K/mm3 (0-0.3); Eosinophils Percent Auto 2.3 % (0-4.4); Hematocrit 32.3 % (37.0-47.0); Hemoglobin 9.8 g/dL (12.0-15.0); Immature Granulocyte Absolute 0.04 K/mm3 (0.00-0.031); Immature Granulocyte Percent A 0.5 % (0-0.5); Lymphocytes Absolute Auto 1.75 K/mm3 (0.9-3.2); Lymphocytes Percent Auto 22.4 % (18.3-44.2); Mean Corpuscular HGB Conc 30.3 g/dl (32-36); Mean Corpuscular Hemoglobin 22.7 pg (26-34); Mean Corpuscular Volume 74.9 fl (80-100); Mean Platelet Volume 9.7 fl (7.4-10.4); Monocytes Absolute Auto 0.7 K/mm3 (0.1-0.6); Monocytes Percent Auto 8.3 % (2.6-8.5); Neutrophils Absolute Auto 5.2 K/mm3 (1.3-6.7); Neutrophils Percent Auto 66.1 % (45.5-73.1); Platelet Count Result 304 k/mm3 (150-375); Red Blood Count 4.31 M/mm3 (4.2-5.4); White Blood Count 7.8 K/mm3 (4.5-10.0)
[2021-04-25 13:57] LABS: Alanine Aminotransferase 20 U/L (4-35); Albumin Level 4.6 g/dL (3.5-5.1); Alkaline Phosphatase 104 U/L (38-126); Anion Gap 10 mmol/L (8-16); Aspartate Amino Transferase 27 U/L (14-36); Bilirubin,Total 0.3 mg/dL (0.2-1.3); Blood Urea Nitrogen 18 mg/dL (7-17); Calcium 9.6 mg/dL (8.4-10.2); Carbon Dioxide 29 mmol/L (22-30); Chloride 96 mmol/L (98-107); Estimated CRCL calculation 63 ml/min; Estimated Glomerular Filt Rate > 60; Glucose 96 mg/dL (65-110); Potassium 4.3 mmol/L (3.4-5.0); Sodium 135 mmol/L (137-145)
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
[2021-04-25 14:20] VITALS: BP 124/66; PULSE 60; RESP 16; O2SAT 96
[2021-04-25 15:02] LABS: Add Urine Microscopic? YES; Appearance Urine Clear (Clear); Bilirubin Urine Negative (Negative); Blood Urine Negative (Negative); Color Urine Yellow (Yellow); Glucose Urine UA Negative (Negative); Ketones Urine Negative (Negative); Leukocyte Esterase Ur Negative LEU/UL (Negative); Nitrate Urine Negative (Negative); Protein Urine Negative (Negative); Specific Grav Ur 1.014 (1.001-1.035); Urobilinogen Urine Negative mg/dL (<2.0); WBC Urine 0-3 /hpf
[2021-04-25] MEDS: PHENAZOPYRIDINE HCL 100 MG TABLET 200 MG PO (16:02)
[2021-04-25 16:08] VITALS: PULSE 68; RESP 16
== END 2021-04-25 16:09 | disposition home or self-care (01) ==
PROVIDERS: Emergency Provider Emergency Medicine; PCP Family Medicine
DX: N30.90 Cystitis, unspecified without hematuria (principal); D64.9 Anemia, unspecified; F41.1 Generalized anxiety disorder; F31.9 Bipolar disorder, unspecified; K21.9 Gastro-esophageal reflux disease without esophagitis; H40.9 Unspecified glaucoma; E78.5 Hyperlipidemia, unspecified; I10 Essential (primary) hypertension; M19.90 Unspecified osteoarthritis, unspecified site; Z98.49 Cataract extraction status, unspecified eye; Z96.651 Presence of right artificial knee joint; Z87.891 Personal history of nicotine dependence
CPT/HCPCS: 36415; 51701; 80053; 81001; 85025; 99283; A9270

== ENCOUNTER 2021-05-16 09:34 | Emergency (ER) | payer MEDICARE, MEDICAID, SELFPAY ==
[2021-05-16] VITALS (11 sets, daily range): BP systolic 106–145; BP diastolic 61–86; PULSE 64–70; RESP 14–20; TEMP 36.3–36.8; O2SAT 95–99
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
[2021-05-16 10:32] LABS: Add Urine Microscopic? YES; Appearance Urine Clear (Clear); Bilirubin Urine Negative (Negative); Color Urine Yellow (Yellow); Glucose Urine UA Negative (Negative); Ketones Urine Negative (Negative); Leukocyte Esterase Ur Negative LEU/UL (Negative); Mucus Urine Rare /lpf; Nitrate Urine Negative (Negative); Protein Urine 1+ mg/dL (Negative); RBC Urine 0-2 /hpf (0-2); Specific Grav Ur 1.018 (1.001-1.035); Squamous Epithelial Cell Urine Rare /hpf (Few); Urobilinogen Urine Negative mg/dL (<2.0)
[2021-05-16 10:49] LABS: Blood Urine Negative (Negative)
--- NOTE | 2021-05-16 11:13 | PC.NURSE ---
PA at bedside.
== END 2021-05-16 11:49 | disposition home or self-care (01) ==
PROVIDERS: Physician Assistant; Emergency Provider Emergency Medicine; PCP Family Medicine
DX: R35.0 Frequency of micturition (principal); I10 Essential (primary) hypertension; E78.5 Hyperlipidemia, unspecified; D64.9 Anemia, unspecified; K21.9 Gastro-esophageal reflux disease without esophagitis; H40.9 Unspecified glaucoma; M19.90 Unspecified osteoarthritis, unspecified site; F41.1 Generalized anxiety disorder; F31.9 Bipolar disorder, unspecified; Z98.49 Cataract extraction status, unspecified eye; Z96.651 Presence of right artificial knee joint; Z87.891 Personal history of nicotine dependence
CPT/HCPCS: 81001; 87077; 87086; 87088; 87186; 99283

== ENCOUNTER 2021-06-04 10:34 | Emergency (ER) | payer MEDICARE, MEDICAID, SELFPAY ==
[2021-06-04 11:09] VITALS: BP 189/87; PULSE 78; RESP 18; TEMP 36.4; O2SAT 98
--- NOTE | 2021-06-04 12:27 | PC.NURSE ---
Addendum entered by Ella Muñoz RN 06/04/21 12:48: JAUN MOORE- [phone] Original Note: Katelyn Gardner, pt director of critical care states to call pt son Juan Moore if needed, she states his number is in her phone.
[2021-06-04 14:35] VITALS: BP 178/80; PULSE 76; RESP 22; TEMP 36.7; O2SAT 99
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
[2021-06-04 14:51] LABS: Add Urine Microscopic? YES; Appearance Urine Cloudy (Clear); Bacteria Urine Trace /hpf; Bilirubin Urine Negative (Negative); Blood Urine Negative (Negative); Color Urine Yellow (Yellow); Glucose Urine UA Negative (Negative); Ketones Urine Negative (Negative); Leukocyte Esterase Ur 1+ LEU/UL (Negative); Nitrate Urine Positive (Negative); Protein Urine Negative (Negative); Specific Grav Ur 1.012 (1.001-1.035); Squamous Epithelial Cell Urine Rare /hpf (Few); Urobilinogen Urine Negative mg/dL (<2.0)
[2021-06-04 16:20] LABS: Basophils Percent Auto 0.2 % (0.2-1.2); Eosinophils Absolute Auto 0.1 K/mm3 (0-0.3); Eosinophils Percent Auto 1.5 % (0-4.4); Hematocrit 36.5 % (37.0-47.0); Hemoglobin 11.2 g/dL (12.0-15.0); Immature Granulocyte Absolute 0.03 K/mm3 (0.00-0.031); Immature Granulocyte Percent A 0.3 % (0-0.5); Lymphocytes Absolute Auto 1.53 K/mm3 (0.9-3.2); Lymphocytes Percent Auto 15.9 % (18.3-44.2); Mean Corpuscular HGB Conc 30.7 g/dl (32-36); Mean Corpuscular Hemoglobin 23.6 pg (26-34); Mean Corpuscular Volume 76.8 fl (80-100); Mean Platelet Volume 9.5 fl (7.4-10.4); Monocytes Absolute Auto 0.6 K/mm3 (0.1-0.6); Neutrophils Absolute Auto 7.3 K/mm3 (1.3-6.7); Neutrophils Percent Auto 76.1 % (45.5-73.1); Platelet Count Result 260 k/mm3 (150-375); Red Blood Count 4.75 M/mm3 (4.2-5.4); Red Cell Distribution Width 18.7 % (11.5-14.5); White Blood Count 9.6 K/mm3 (4.5-10.0)
[2021-06-04] MEDS: SODIUM CHLORIDE 0.9% IV 1,000 ML 999 ML IV CONT (16:20)
[2021-06-04 16:30] LABS: Anion Gap 10 mmol/L (8-16); Blood Urea Nitrogen 16 mg/dL (7-17); Calcium 9.5 mg/dL (8.4-10.2); Carbon Dioxide 31 mmol/L (22-30); Chloride 100 mmol/L (98-107); Estimated CRCL calculation 65 ml/min; Estimated Glomerular Filt Rate > 60; Glucose 108 mg/dL (65-110); Potassium 4.1 mmol/L (3.4-5.0); Sodium 141 mmol/L (137-145)
[2021-06-04 16:31] LABS: Lactic Acid Reflex 0.8 mmol/L (0.7-2.1)
== END 2021-06-04 17:45 | disposition home or self-care (01) ==
PROVIDERS: Emergency Provider Emergency Medicine; PCP Family Medicine
DX: N30.01 Acute cystitis with hematuria (principal); F31.9 Bipolar disorder, unspecified; D64.9 Anemia, unspecified; Z87.440 Personal history of urinary (tract) infections; K21.9 Gastro-esophageal reflux disease without esophagitis; I10 Essential (primary) hypertension; E78.5 Hyperlipidemia, unspecified; M19.90 Unspecified osteoarthritis, unspecified site
CPT/HCPCS: 36415; 80048; 81001; 83605; 85025; 87077; 87086; 87088; 87186; 96365; 99284; J0696; J7030

== ENCOUNTER 2021-06-10 10:31 | Observation (INO) | payer MEDICARE, MEDICAID, SELFPAY ==
--- NOTE | ~2021-06-10 | MR_ITS ---
EXAMINATION: MR brain/brain stem wo/w con EXAM DATE: 06/11/2021 12:13 INDICATION: Confusion. TECHNIQUE: Magnetic resonance imaging (MRI) of the brain/brain stem obtained without contrast. Sagit chacorta T1, axial diffusion, gradient echo (T2*), T1, T2, FLAIR sequences obtained. Patient was then inj ected with 18 cc intravenous Multihance contrast. Axial and coronal postcontrast T1 weighted sequence s obtained. Comparison is made to prior examination from 01/21/2021. FINDINGS: There are no areas of restricted diffusion to suggest acute infarction. There is no acute hemorrhage seen on the T2*, a hemosiderin sensitive sequence. No intraparenchymal brain mass. The ve ntricles are normal in size. There are no extra-axial collections. Flow voids are seen in the cereb ral arteries on the T2-weighted sequences consistent with their expected patency. Patient has had bi lateral ocular lens surgery. Soft tissue is unremarkable. There are no areas of abnormal enhanceme nt on the postcontrast images. IMPRESSION: 1. Unremarkable brain MRI examination. Reviewed, dictated and finalized at location A.
--- NOTE | ~2021-06-10 | XR_ITS ---
EXAMINATION: XR chest 1V EXAM DATE: 06/10/2021 12:54 INDICATION: Transient alteration of awareness. History of reflux and hypertension. TECHNIQUE: Portable AP frontal chest x-ray was obtained. Comparison is made to prior examination from 01/20/2021. FINDINGS: The lungs are clear. There are no pleural effusions. The cardiomediastinal silhouette is within normal limits. There is no pneumothorax suspected. Mild scoliosis and bony degenerative ratliff ges. IMPRESSION: No acute cardiopulmonary findings. Reviewed, dictated and finalized at location A.
--- NOTE | ~2021-06-10 | CT_ITS ---
EXAMINATION: CT brain wo con EXAM DATE: 06/10/2021 12:48 INDICATION: Confusion. TECHNIQUE: Spiral CT of the head was performed without contrast. Axial, coronal and sagittal images were reviewed. The dose-length product (DLP) for this examination was 681.00 mGy-cm. The exposure w as tailored according to patient size, and iterative reconstruction (ASIR) was used as additional dos e reduction technique. Comparison is made to prior examination from 09/26/2019. FINDINGS: There is no acute intraparenchymal hemorrhage. No evidence of intraparenchymal brain mass lesion. No evidence of acute infarction. There is no mass effect or midline shift. The ventricles are normal in size. There are no extra-axial collections. There are no acute calvarial fractures. P payton has had bilateral ocular lens surgery. Soft tissue is unremarkable. The visualized sinuses a nd mastoid air cells are well aerated. IMPRESSION: 1. No acute intracranial findings. Reviewed, dictated and finalized at location A.
[2021-06-10 11:40] VITALS: BP 152/83; PULSE 81; RESP 18; TEMP 36.8; O2SAT 97
--- NOTE | 2021-06-10 11:44 | ECG_ITS ---
Measurements Intervals [place] Rate: 75 P: 51 RI: 135 QRS: 15 QRSD: 90 T: 34 QT: 377 QTc: 421 Interpretive Statements SINUS RHYTHM LEFT VENTRICULAR HYPERTROPHY CONSIDER INFERIOR INFARCT, AGE INDETERMINATE BASELINE ARTIFACT- I, II, III, AVF ABNORMAL ECG Electronically Signed On 06-10-2021 12:06:23 CDT by Jorge Salazar D.O.
[2021-06-10 12:09] LABS: Basophils Absolute Auto 0.1 K/mm3 (0.0-0.1); Basophils Percent Auto 0.4 % (0.2-1.2); Eosinophils Absolute Auto 0.1 K/mm3 (0-0.3); Eosinophils Percent Auto 0.9 % (0-4.4); Hematocrit 37.3 % (37.0-47.0); Hemoglobin 11.4 g/dL (12.0-15.0); Immature Granulocyte Absolute 0.05 K/mm3 (0.00-0.031); Immature Granulocyte Percent A 0.4 % (0-0.5); Lymphocytes Absolute Auto 1.52 K/mm3 (0.9-3.2); Mean Corpuscular HGB Conc 30.6 g/dl (32-36); Mean Corpuscular Hemoglobin 24.1 pg (26-34); Mean Corpuscular Volume 78.7 fl (80-100); Mean Platelet Volume 10.1 fl (7.4-10.4); Monocytes Absolute Auto 0.7 K/mm3 (0.1-0.6); Monocytes Percent Auto 5.3 % (2.6-8.5); Neutrophils Absolute Auto 11.3 K/mm3 (1.3-6.7); Platelet Count Result 269 k/mm3 (150-375); Red Blood Count 4.74 M/mm3 (4.2-5.4); Red Cell Distribution Width 19.2 % (11.5-14.5); White Blood Count 13.8 K/mm3 (4.5-10.0)
[2021-06-10 12:21] LABS: Alanine Aminotransferase 19 U/L (4-35); Alkaline Phosphatase 110 U/L (38-126); Anion Gap 10 mmol/L (8-16); Aspartate Amino Transferase 25 U/L (14-36); Bilirubin,Total 0.5 mg/dL (0.2-1.3); Blood Urea Nitrogen 20 mg/dL (7-17); Calcium 9.6 mg/dL (8.4-10.2); Carbon Dioxide 30 mmol/L (22-30); Chloride 99 mmol/L (98-107); Estimated CRCL calculation 79 ml/min; Estimated Glomerular Filt Rate > 60; Glucose 100 mg/dL (65-110); Potassium 4.1 mmol/L (3.4-5.0); Sodium 139 mmol/L (137-145)
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
[2021-06-10 12:37] VITALS: BP 133/88; PULSE 76; RESP 13
[2021-06-10 13:24] LABS: Add Urine Microscopic? YES; Appearance Urine Clear (Clear); Bilirubin Urine Negative (Negative); Blood Urine Negative (Negative); Color Urine Yellow (Yellow); Glucose Urine UA Negative (Negative); Ketones Urine Negative (Negative); Leukocyte Esterase Ur Negative LEU/UL (Negative); Mucus Urine Rare /lpf; Nitrate Urine Negative (Negative); Protein Urine Negative (Negative); RBC Urine 0-2 /hpf (0-2); Specific Grav Ur 1.019 (1.001-1.035); Urobilinogen Urine Negative mg/dL (<2.0); WBC Urine 0-3 /hpf
--- NOTE | 2021-06-10 14:59 | PC.NURSE ---
Dr. James attempted to call sonCaleb.
[2021-06-10] MEDS: IBUPROFEN 600 MG TABLET PO (15:44)
[2021-06-10] MEDS: ACETAMINOPHEN 325 MG TABLET 650 MG PO (15:44)
[2021-06-10 15:46] VITALS: BP 133/75; PULSE 72; RESP 16; O2SAT 100
[2021-06-10 16:52] VITALS: BMI 32.1
--- NOTE | 2021-06-10 16:56 | PC.NURSE ---
This patient, Katie Spain, was admitted to Medical Room 255-. Patient/family oriented to hospital policies and general routines including ID bracelet, bed and alarms, visiting hours, pain management, procedures, bathroom and other care routines, personal items, smoking policy, room service/diet, and visiting hours. Information on how to activate the Rapid Response Team has been discussed. Patient/Family are encouraged to report perceived risks to care and to ask questions if they do not understand what they are told or what they should do.
[2021-06-10 17:43] VITALS: BP 154/76; PULSE 81; RESP 16; TEMP 36.6; O2SAT 98
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
[2021-06-10] MEDS: PANTOPRAZOLE SOD SESQUIHYDRATE 20 MG TAB PO (19:55)
[2021-06-10] MEDS: CEPHALEXIN 500 MG CAPSULE PO (19:55)
[2021-06-10] MEDS: traZODone HCL 50 MG TABLET 150 MG PO (19:55)
[2021-06-10] MEDS: GABAPENTIN 300 MG CAPSULE 600 MG PO (19:56)
[2021-06-10] MEDS: ARIPiprazole 5 MG TABLET PO (19:56)
[2021-06-10] MEDS: hydrALAZINE HCL 25 MG TABLET 75 MG PO (19:56)
[2021-06-10 20:00] VITALS: PULSE 69; PULSE 77; RESP 20; O2SAT 95
[2021-06-10 20:32] VITALS: BP 185/71; PULSE 77; RESP 20; TEMP 36.1; O2SAT 95
[2021-06-10] MEDS: HYDROcodone/acetaminophen (*CRX) 10-325 MG TABLET 1 TAB PO (22:13)
[2021-06-11] VITALS (9 sets, daily range): BP systolic 126–185; BP diastolic 66–81; PULSE 64–103; RESP 18–22; TEMP 36–36.9; O2SAT 95–98
[2021-06-11 05:58] LABS: Basophils Percent Auto 0.4 % (0.2-1.2); Eosinophils Absolute Auto 0.2 K/mm3 (0-0.3); Eosinophils Percent Auto 2.3 % (0-4.4); Hematocrit 33.5 % (37.0-47.0); Hemoglobin 10.2 g/dL (12.0-15.0); Immature Granulocyte Absolute 0.03 K/mm3 (0.00-0.031); Immature Granulocyte Percent A 0.4 % (0-0.5); Lymphocytes Absolute Auto 1.41 K/mm3 (0.9-3.2); Lymphocytes Percent Auto 20.7 % (18.3-44.2); Mean Corpuscular HGB Conc 30.4 g/dl (32-36); Mean Corpuscular Hemoglobin 23.8 pg (26-34); Mean Corpuscular Volume 78.1 fl (80-100); Mean Platelet Volume 9.7 fl (7.4-10.4); Monocytes Absolute Auto 0.5 K/mm3 (0.1-0.6); Monocytes Percent Auto 7.5 % (2.6-8.5); Neutrophils Absolute Auto 4.7 K/mm3 (1.3-6.7); Neutrophils Percent Auto 68.7 % (45.5-73.1); Platelet Count Result 205 k/mm3 (150-375); Red Blood Count 4.29 M/mm3 (4.2-5.4); Red Cell Distribution Width 19.3 % (11.5-14.5); White Blood Count 6.8 K/mm3 (4.5-10.0)
[2021-06-11 06:19] LABS: Alanine Aminotransferase 16 U/L (4-35); Albumin Level 4.3 g/dL (3.5-5.1); Alkaline Phosphatase 94 U/L (38-126); Anion Gap 6 mmol/L (8-16); Aspartate Amino Transferase 23 U/L (14-36); Bilirubin,Total 0.4 mg/dL (0.2-1.3); Blood Urea Nitrogen 20 mg/dL (7-17); Calcium 8.9 mg/dL (8.4-10.2); Carbon Dioxide 33 mmol/L (22-30); Chloride 101 mmol/L (98-107); Estimated CRCL calculation 79 ml/min; Estimated Glomerular Filt Rate > 60; Glucose 94 mg/dL (65-110); Lactate Dehydrogenase 367 U/L (313-618); Potassium 3.9 mmol/L (3.4-5.0); Sodium 140 mmol/L (137-145)
[2021-06-11] MEDS: GABAPENTIN 300 MG CAPSULE 600 MG PO ×3 (06:25→16:39)
[2021-06-11] MEDS: DULoxetine HCL 60 MG CAPSULE.DR PO (06:25)
[2021-06-11] MEDS: OMEGA 3 POLYUNSAT FATTY ACIDS 1 GM CAP PO (06:25)
[2021-06-11] MEDS: ATORVASTATIN 40 MG TABLET PO (06:26)
[2021-06-11] MEDS: ASPIRIN 81 MG ENTERIC TABLET PO (06:26)
[2021-06-11] MEDS: cloNIDine HCL 0.1 MG TABLET PO (06:26)
[2021-06-11] MEDS: CEPHALEXIN 500 MG CAPSULE PO (06:26)
[2021-06-11] MEDS: hydrALAZINE HCL 25 MG TABLET 75 MG PO ×2 (06:26→16:38)
[2021-06-11] MEDS: amLODIPine BESYLATE 5 MG TABLET 10 MG PO (06:26)
[2021-06-11] MEDS: SERTRALINE HCL 50 MG TABLET 200 MG PO (06:26)
[2021-06-11 07:51] LABS: Ferritin 7.53 ng/mL (11.1-264)
[2021-06-11] MEDS: PANTOPRAZOLE SOD SESQUIHYDRATE 20 MG TAB PO ×2 (09:53→16:39)
[2021-06-11 11:10] LABS: CRP 1.1 mg/dL (<1.0)
[2021-06-11 11:13] LABS: Ammonia < 9 umol/L (9-30)
[2021-06-11 11:18] LABS: Transferrin 252 mg/dL (206-381)
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
--- NOTE | 2021-06-11 11:45 | PC.NURSE ---
To Radiology per stretcher
--- NOTE | 2021-06-11 11:46 | PM.IMPN ---
Progress Note: A&P Assessment and Plan (1) Confusion: Code(s): R41.0 - Disorientation, unspecified Status: Acute Assessment and Plan: Son and patient described this as a forgetfulness. The son states this is associated with UTIs. She did have a UTI about a week ago which was treated with Keflex although this appears to be resistant. New UA does not look infectious whatsoever and she has no symptoms. I do not think this is the cause. CT of the brain has no acute pathology. MRI has been ordered and Neurology has been consulted. CRP is normal, white count is normal, and I do not see any signs of infection on exam. Cannot rule out psych component although she does not seem to be in any marisel and follows commands. Check B12 and folate. (2) Carotid stenosis, right: Code(s): I65.21 - Occlusion and stenosis of right carotid artery Status: Acute Assessment and Plan: The patient is carotid Doppler from 01/21/2021 was read as follows1. 50-69% stenosis in the right internal carotid artery. -will need to follow up with vascular surgery (3) Psychiatric illness: Code(s): F99 - Mental disorder, not otherwise specified Status: Acute Assessment and Plan: Continue with patient's home medications of duloxetine, Abilify, trazodone and sertraline. (4) Hyperlipidemia: Code(s): E78.5 - Hyperlipidemia, unspecified Status: Acute Assessment and Plan: Continue with atorvastatin (5) Anxiety: Code(s): F41.9 - Anxiety disorder, unspecified Status: Acute Assessment and Plan: Continue with sertraline (6) Hypertension: Qualifiers: Hypertension type: essential hypertension Qualified Code(s): I10 - Essential (primary) hypertension Code(s): I10 - Essential (primary) hypertension Status: Acute Assessment and Plan: Last blood pressure 132/66 -continue Norvasc, hydralazine and clonidine Time Spent With Patient Time with patient: 25 - 35 minutes Subjective Date/time seen: 06/11/21 11:46 Interval history: Pt is a 66-year-old female here for confusion. Patient was seen today and is doing well. She has no complaints and absolutely no pain. She specifically denies nausea, vomiting, fevers, chills, chest pain, shortness of breath, dysuria, abdominal pain, diarrhea or constipation. She is unsure when her last bowel movement was. She says she is not sure why she is here in hospital but she thinks is for confusion. She says that she has been more forgetful and she notices that she goes in an out with her confusion. I called her son who states that every time she gets a UTI she gets confused. She usually calls him daily and if she does not call him, he knows that she is confused. He describes her confusion as forgetfulness. She sometimes forgets why she goes into the bathroom or forgets what day of the week it is. Review of Systems Review of Systems: All systems reviewed & are unremarkable except as noted in HPI and below Exam Narrative: General: Well developed well nourished patient in NAD HEENT: normocephalic Neck: supple Neuro: Alert and oriented to herself, situation, date and president. She did not know the year. Cranial nerves 2-12 intact. Equal strength the upper lower extremity 5 5. Able to do rapid alternating movements and [id number]. Able to do [id number] Psych: Insight normal. If she were to find an envelope that was addressed on the ground she would bring him back to the post office CV:RRR Resp:CTA Abd: Soft, non distended. No pain to palpation. Positive bowel sounds Extremities: No swelling, erythema, or pain to palpation. Objective Data Vital Signs Vital Signs: Vital Signs - 24 hr 06/10/21 12:37 06/10/21 15:46 06/10/21 17:43 Temperature 97.9 F Pulse Rate 76 72 81 Respiratory Rate 13 16 16 Blood Pressure 133/88 133/75 154/76 H Pulse Oximetry 100 98
[2021-06-11] MEDS: LORazepam INJ (*CRX) 2 MG/ML VIAL 0.5 MG IV PUSH (11:50)
[2021-06-11 11:51] LABS: Iron 29 ug/dL (37-170)
[2021-06-11 12:00] LABS: Percent Iron Saturation 8 % (20-50)
[2021-06-11 12:04] LABS: Procalcitonin 0.1 ng/mL
[2021-06-11 12:23] LABS: Folic Acid > 20.0 ng/mL (2.76->20)
[2021-06-11] MEDS: HYDROcodone/acetaminophen (*CRX) 10-325 MG TABLET 1 TAB PO ×2 (13:20→21:13)
[2021-06-11] MEDS: ARIPiprazole 5 MG TABLET PO (21:13)
[2021-06-11] MEDS: traZODone HCL 50 MG TABLET 150 MG PO (21:13)
[2021-06-12] VITALS: PULSE 78
[2021-06-12 04:00] VITALS: PULSE 81
[2021-06-12 04:48] VITALS: BP 153/90; PULSE 85; RESP 20; TEMP 36.2; O2SAT 94
[2021-06-12 05:52] LABS: Hematocrit 34.1 % (37.0-47.0); Hemoglobin 10.4 g/dL (12.0-15.0); Mean Corpuscular HGB Conc 30.5 g/dl (32-36); Mean Corpuscular Hemoglobin 23.9 pg (26-34); Mean Corpuscular Volume 78.2 fl (80-100); Mean Platelet Volume 9.8 fl (7.4-10.4); Platelet Count Result 228 k/mm3 (150-375); Red Blood Count 4.36 M/mm3 (4.2-5.4); Red Cell Distribution Width 19.1 % (11.5-14.5); White Blood Count 6.5 K/mm3 (4.5-10.0)
[2021-06-12 05:53] LABS: Anion Gap 8 mmol/L (8-16); Blood Urea Nitrogen 22 mg/dL (7-17); Carbon Dioxide 31 mmol/L (22-30); Chloride 101 mmol/L (98-107); Estimated CRCL calculation 70 ml/min; Estimated Glomerular Filt Rate > 60; Glucose 102 mg/dL (65-110); Potassium 3.8 mmol/L (3.4-5.0); Sodium 140 mmol/L (137-145)
[2021-06-12 08:00] VITALS: PULSE 108
[2021-06-12] MEDS: SERTRALINE HCL 50 MG TABLET 200 MG PO (08:25)
[2021-06-12] MEDS: GABAPENTIN 300 MG CAPSULE 600 MG PO ×2 (08:26→13:55)
[2021-06-12] MEDS: cloNIDine HCL 0.1 MG TABLET PO (08:26)
[2021-06-12] MEDS: OMEGA 3 POLYUNSAT FATTY ACIDS 1 GM CAP PO (08:26)
[2021-06-12] MEDS: ATORVASTATIN 40 MG TABLET PO (08:26)
[2021-06-12] MEDS: hydrALAZINE HCL 25 MG TABLET 75 MG PO (08:26)
[2021-06-12] MEDS: ASPIRIN 81 MG ENTERIC TABLET PO (08:26)
[2021-06-12] MEDS: DULoxetine HCL 60 MG CAPSULE.DR PO (08:26)
[2021-06-12] MEDS: amLODIPine BESYLATE 5 MG TABLET 10 MG PO (08:26)
[2021-06-12] MEDS: PANTOPRAZOLE SOD SESQUIHYDRATE 20 MG TAB PO (08:26)
[2021-06-12 12:00] VITALS: PULSE 103
[2021-06-12 13:48] VITALS: BP 148/85
--- NOTE | 2021-06-12 14:44 | PM.DS ---
DS: Admitting Diagnosis Discharge Date 06/12/21 Admitting Diagnosis confusion DS: Discharge Diagnosis Discharge Diagnosis (1) Confusion: Code(s): R41.0 - Disorientation, unspecified Status: Acute Assessment and Plan: Son and patient described this as a forgetfulness. The son states this is usually associated with UTIs. She did have a UTI about a week ago which was treated with Keflex although this appears to be resistant. New UA does not look infectious whatsoever and she has no symptoms. I do not think this is the cause. CT of the brain has no acute pathology. MRI is negative. CRP is normal, white count is normal, and I do not see any signs of infection on exam. Cannot rule out psych component although she does not seem to be in any marisel and follows commands. Dementia? Neurology was consulted. B12, folate and TSH normal (2) Carotid stenosis, right: Code(s): I65.21 - Occlusion and stenosis of right carotid artery Status: Acute Assessment and Plan: The patient is carotid Doppler from 01/21/2021 was read as follows1. 50-69% stenosis in the right internal carotid artery. -will need to follow up with vascular surgery (3) Psychiatric illness: Code(s): F99 - Mental disorder, not otherwise specified Status: Acute Assessment and Plan: Continue with patient's home medications of duloxetine, Abilify, trazodone and sertraline. (4) Hyperlipidemia: Code(s): E78.5 - Hyperlipidemia, unspecified Status: Acute Assessment and Plan: Continue with atorvastatin (5) Anxiety: Code(s): F41.9 - Anxiety disorder, unspecified Status: Acute Assessment and Plan: Continue with sertraline (6) Hypertension: Qualifiers: Hypertension type: essential hypertension Qualified Code(s): I10 - Essential (primary) hypertension Code(s): I10 - Essential (primary) hypertension Status: Acute Assessment and Plan: Last blood pressure 148/85 -continue Norvasc, hydralazine and clonidine DS: Summary Hospital Course Hospital Course: Patient is a 66-year-old female who was brought in for confusion that is intermittent and worsened 1 week ago. Vitals in the ER were temperature 36.8? C, pulse 81, respiratory rate 18, blood pressure 152/83, pulse ox 97 on room air. Vitals in the ER were white blood cell count 13.8, hemoglobin 11.4, hematocrit 37.3, platelets 269. BMP within normal limits. TSH normal. UA negative. Head CT showed no acute findings. Chest x-ray negative. Patient was admitted to the hospitalist service and observed. She underwent an MRI which was negative. Neurology was consulted and did not find any pathology and had no further recommendations. Patient improved during her stay and was alert and oriented x4. I spoke with the son who states that her confusion is more less forgetfulness. We did talk about possible dementia, psychiatric component, and that she needs to follow up with her primary care physician. Day of discharge the patient was feeling back to baseline with no pain or complaints. She did continue to feel weak and SNF was thought to be appropriate. A review of her current workup does not reveal any obvious signs of infection. CXR normal, UA appears normal and the patient having no symptoms. She did previously have a UTI and given Keflex. This was not sensitive but may have treated a mild infection. It is possibility that her Proteus is a colonizer. Her CRP is normal, white count normal and patient clinically is doing great. She was educated about the worrisome signs and symptoms come back to emergency room for and was discharged stable condition Time Spent with Patient Time attestation: Total time spent providing and/or coordinating discharge services: 38 minutes Exam Narrative: General: Well developed well nourished patient in NAD HEENT: normocephalic Neck: supple Neuro
--- NOTE | 2021-06-18 10:54 | PC.NURSE ---
Blood cx are negative.
== END 2021-06-12 15:37 ==
LOC: ANHED 15:33 → ANH2MED 15:58
PROVIDERS: Emergency Medicine; Nurse Practitioner; Physician Assistant; Admitting Provider Internal Medicine; Emergency Provider Emergency Medicine; PCP Family Medicine; Visit Provider Family Medicine
DX: R41.0 Disorientation, unspecified (principal); I10 Essential (primary) hypertension; E78.5 Hyperlipidemia, unspecified; M54.9 Dorsalgia, unspecified; G89.29 Other chronic pain; I65.21 Occlusion and stenosis of right carotid artery; F41.9 Anxiety disorder, unspecified; Z96.651 Presence of right artificial knee joint; D64.9 Anemia, unspecified
CPT/HCPCS: 36415; 51701; 70450; 70553; 71045; 80048; 80053; 81001; 82140; 82607; 82728; 82746; 83540; 83550; 83615; 83735; 84145; 84443; 84466; 85025; 85027; 86140; 87040; 93005; 96374; 97161; 97165; 99285; A9270; A9577; G0378; J2060

== ENCOUNTER 2021-08-02 08:56 | Outpatient (CLI) | payer MEDICARE, MEDICAID, SELFPAY ==
[2021-08-02 09:29] LABS: Cholesterol 205 mg/dL (0-200); HDL Direct 57 mg/dL; Triglycerides 132 mg/dL (<150)
[2021-08-02 09:39] LABS: LDL Cholesterol Direct 109 mg/dL
== END 2021-08-02 08:57 | disposition home or self-care (01) ==
PROVIDERS: PCP Family Medicine; Visit Provider Internal Medicine Cardiovascular Disease
DX: E78.5 Hyperlipidemia, unspecified (principal)
CPT/HCPCS: 36415; 80061

== ENCOUNTER 2021-08-06 08:59 | Emergency (ER) | payer MEDICARE, OTHER, SELFPAY ==
[2021-08-06 09:16] VITALS: BP 149/79; PULSE 75; RESP 16; TEMP 36.8; O2SAT 98
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
== END 2021-08-06 10:10 | disposition home or self-care (01) ==
PROVIDERS: Emergency Provider Nurse Practitioner; PCP Family Medicine
DX: R30.0 Dysuria (principal); R35.0 Frequency of micturition; M54.50 Low back pain, unspecified; F32.A Depression, unspecified; K21.9 Gastro-esophageal reflux disease without esophagitis; H40.9 Unspecified glaucoma; E78.5 Hyperlipidemia, unspecified; I10 Essential (primary) hypertension; M19.90 Unspecified osteoarthritis, unspecified site; F41.9 Anxiety disorder, unspecified
CPT/HCPCS: 81003; 87086; 87088; 99213; G0463

== ENCOUNTER 2021-08-20 08:55 | Outpatient (CLI) | payer MEDICARE, MEDICAID, SELFPAY ==
[2021-08-20 09:38] LABS: Basophils Percent Auto 0.4 % (0.2-1.2); Eosinophils Absolute Auto 0.3 K/mm3 (0-0.3); Eosinophils Percent Auto 3.6 % (0-4.4); Hematocrit 35.1 % (37.0-47.0); Hemoglobin 10.6 g/dL (12.0-15.0); Immature Granulocyte Absolute 0.03 K/mm3 (0.00-0.031); Immature Granulocyte Percent A 0.4 % (0-0.5); Lymphocytes Absolute Auto 1.39 K/mm3 (0.9-3.2); Lymphocytes Percent Auto 18.5 % (18.3-44.2); Mean Corpuscular HGB Conc 30.2 g/dl (32-36); Mean Corpuscular Hemoglobin 24.2 pg (26-34); Mean Corpuscular Volume 80.1 fl (80-100); Mean Platelet Volume 9.3 fl (7.4-10.4); Monocytes Absolute Auto 0.6 K/mm3 (0.1-0.6); Neutrophils Absolute Auto 5.2 K/mm3 (1.3-6.7); Neutrophils Percent Auto 69.1 % (45.5-73.1); Platelet Count Result 282 k/mm3 (150-375); Red Blood Count 4.38 M/mm3 (4.2-5.4); Red Cell Distribution Width 16.7 % (11.5-14.5); White Blood Count 7.5 K/mm3 (4.5-10.0)
[2021-08-20 09:53] LABS: Alanine Aminotransferase 21 U/L (4-35); Albumin Level 4.6 g/dL (3.5-5.1); Alkaline Phosphatase 101 U/L (38-126); Anion Gap 7 mmol/L (8-16); Aspartate Amino Transferase 28 U/L (14-36); Bilirubin,Total 0.5 mg/dL (0.2-1.3); Blood Urea Nitrogen 19 mg/dL (7-17); Calcium 9.4 mg/dL (8.4-10.2); Carbon Dioxide 32 mmol/L (22-30); Chloride 96 mmol/L (98-107); Cholesterol 229 mg/dL (0-200); Estimated Glomerular Filt Rate > 60; Glucose 99 mg/dL (65-110); HDL Direct 55 mg/dL; Potassium 4.4 mmol/L (3.4-5.0); Sodium 135 mmol/L (137-145); Triglycerides 120 mg/dL (<150)
[2021-08-20 10:05] LABS: Free T4 Free Thyroxine 1.33 ng/mL (0.78-2.19); LDL Cholesterol Direct 137 mg/dL
[2021-08-20 10:21] LABS: Total Triiodothyronine (T3) 1.05 NG/ML (0.97-1.69)
== END 2021-08-20 08:56 | disposition home or self-care (01) ==
PROVIDERS: PCP Family Medicine; Visit Provider Family Medicine
DX: E55.9 Vitamin D deficiency, unspecified (principal); R80.9 Proteinuria, unspecified; Z13.29 Encounter for screening for other suspected endocrine disorder; Z13.220 Encounter for screening for lipoid disorders; Z13.6 Encounter for screening for cardiovascular disorders; Z13.0 Encounter for screening for diseases of the blood and blood-forming organs and certain disorders involving the immune mechanism; Z00.00 Encounter for general adult medical examination without abnormal findings; I10 Essential (primary) hypertension
CPT/HCPCS: 36415; 80053; 80061; 82306; 84439; 84443; 84480; 85025

== ENCOUNTER 2021-08-21 11:01 | Outpatient (NON) | payer MEDICARE, MEDICAID, SELFPAY ==
[2021-08-21 12:41] LABS: Creatinine Urine 49.5 mg/dL
[2021-08-21 12:54] LABS: MALB Creatinine Ratio < 12.1 mg/g (0-30); Microalbumin Urine Random < 6.0 mg/L (0-16.7)
== END 2021-08-21 11:02 | disposition home or self-care (01) ==
LOC: ANHLAB 11:04
PROVIDERS: PCP Family Medicine; Visit Provider Family Medicine
DX: I10 Essential (primary) hypertension (principal)
CPT/HCPCS: 82043

== ENCOUNTER 2021-09-10 09:49 | Emergency (ER) | payer MEDICARE, MEDICAID, SELFPAY ==
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
[2021-09-10 10:16] VITALS: BP 145/78; PULSE 89; RESP 16; TEMP 36.7; O2SAT 96
== END 2021-09-10 10:35 | disposition short-term general hospital (02) ==
PROVIDERS: Emergency Provider Nurse Practitioner
DX: R41.0 Disorientation, unspecified (principal); E78.5 Hyperlipidemia, unspecified; I10 Essential (primary) hypertension; Z87.891 Personal history of nicotine dependence; Z79.82 Long term (current) use of aspirin; Z87.440 Personal history of urinary (tract) infections
CPT/HCPCS: 81003; 99212; G0463

== ENCOUNTER 2021-09-10 11:10 | Emergency (ER) | payer MEDICARE, MEDICAID, SELFPAY ==
[2021-09-10 11:22] VITALS: BP 148/84; PULSE 75; RESP 20; TEMP 36.6; O2SAT 92
[2021-09-10 13:53] VITALS: BP 181/74; PULSE 73; TEMP 37.4; O2SAT 96
[2021-09-10 17:15] VITALS: BP 183/78; PULSE 79; TEMP 36.1; O2SAT 96
--- NOTE | 2021-09-10 17:33 | ED.AMS ---
HPI - Altered Mental Status General Chief Complaint: Altered Mental Status Stated Complaint: confusion Time Seen by Provider: 09/10/21 17:31 Source: patient, family and other (Urgent care records) Mode of arrival: ambulatory Limitations: altered mental status History of Present Illness HPI narrative: Patient is a 66-year-old female sent here from the urgent care due to confusion and urinary symptoms, burning on urination, x3 days. Patient has similar episodes in the past, most recently was last month when she was diagnosed with a UTI that was only susceptible to IV antibiotics and Augmentin. Patient denies any chest pain, shortness of breath, abdominal pain, nausea, vomiting, fever or chills. Related Data Home Medications Medication Instructions Recorded Confirmed aripiprazole 5 mg PO HS 03/29/21 09/10/21 duloxetine 60 mg PO DAILY 03/29/21 09/10/21 gabapentin 600 mg PO TID 03/29/21 09/10/21 pantoprazole 20 mg PO BID 03/29/21 09/10/21 sertraline 200 mg PO DAILY 03/29/21 09/10/21 trazodone 150 mg PO HS 03/29/21 09/10/21 aspirin [Adult Low Dose Aspirin] 81 mg PO DAILY 06/10/21 09/10/21 omega 8-mnk-jfl-fish oil [Fish Oil] 1 cap PO DAILY 06/10/21 09/10/21 Allergies Allergy/AdvReac Type Severity Reaction Status Date / Time meperidine Allergy Mild Unknown Verified 09/10/21 10:36 morphine Allergy Mild Unknown Verified 09/10/21 10:36 Penicillins Allergy Mild Unknown Verified 09/10/21 10:36 bee venom protein (honey bee) Allergy Unknown Verified 09/10/21 10:36 [bees] hydromorphone AdvReac Unknown Nausea Verified 09/10/21 10:36 Review of Systems Review of Systems: All systems reviewed & are unremarkable except as noted in HPI and below Constitutional: Constitutional: Denies body ache(s), Denies chills, Denies excessive sweating, Denies fatigue, Denies fever(s), Denies headache(s), Denies lethargy, Denies malaise, Denies weakness and Denies weight loss Eyes: Eyes: Denies blurry vision, Denies change in vision and Denies loss of vision ENT: Denies dizziness, Denies ear discharge, Denies headache(s), Denies lip swelling, Denies epistaxis, Denies nasal congestion, Denies neck pain, Denies throat swelling and Denies tongue swelling Cardiovascular: Cardiovascular: Denies chest pain, Denies chest pain at rest, Denies chest pain with activity, Denies diaphoresis, Denies rapid heart rate, Denies edema, Denies irregular heart rhythm, Denies lightheadedness, Denies palpitations, Denies dyspnea and Denies dyspnea on exertion Respiratory: Respiratory: Denies chest congestion, Denies cough, Denies hemoptysis, Denies dyspnea and Denies dyspnea on exertion Gastrointestinal: Gastrointestinal: Denies abdominal pain, Denies melena, Denies hematochezia, Denies diarrhea, Denies nausea, Denies vomiting and Denies hematemesis Musculoskeletal: Musculoskeletal: Denies abnormal gait, Denies deformity, Denies joint swelling, Denies limited range of motion, Denies neck pain and Denies numbness Neurologic: Denies Abnormal speech present, Denies abnormal gait, Denies dizziness, Denies headache(s), Denies focal weakness, Denies loss of vision, Denies numbness, Denies Other visual disturbances, Denies Sensory deficit (Neuro) and Denies weakness Psychiatric: Psychiatric: Denies confusion, Denies depression, Denies auditory hallucinations, Denies homicidal ideation and Denies suicidal ideation Endocrine: Endocrine: Denies cold intolerance, Denies excessive sweating, Denies fatigue, Denies heat intolerance and Denies palpitations Hematologic/Lymphatic: Hematologic/Lymphatic: Denies easy bleeding and Denies easy bruising Allergic/Immunologic: Allergic/Immunologic: Denies lip swelling, Denies throat swelling and Denies tongue swelling PMFSH Past Medical History Medical History Bipolar disorder Chronic anemia With history of blood transfusion. Chronic back pain Related to chronic L3 burst fracture. Chronic marilou
[2021-09-10 17:35] VITALS: TEMP 37.1
[2021-09-10 18:23] LABS: Basophils Percent Auto 0.3 % (0.2-1.2); Eosinophils Absolute Auto 0.2 K/mm3 (0-0.3); Hematocrit 36.3 % (37.0-47.0); Hemoglobin 11.2 g/dL (12.0-15.0); Immature Granulocyte Absolute 0.03 K/mm3 (0.00-0.031); Immature Granulocyte Percent A 0.3 % (0-0.5); Lymphocytes Absolute Auto 1.73 K/mm3 (0.9-3.2); Lymphocytes Percent Auto 19.7 % (18.3-44.2); Mean Corpuscular HGB Conc 30.9 g/dl (32-36); Mean Corpuscular Hemoglobin 24.4 pg (26-34); Mean Corpuscular Volume 79.1 fl (80-100); Mean Platelet Volume 9.6 fl (7.4-10.4); Monocytes Absolute Auto 0.7 K/mm3 (0.1-0.6); Monocytes Percent Auto 7.7 % (2.6-8.5); Neutrophils Absolute Auto 6.2 K/mm3 (1.3-6.7); Platelet Count Result 276 k/mm3 (150-375); Red Blood Count 4.59 M/mm3 (4.2-5.4); Red Cell Distribution Width 17.6 % (11.5-14.5); White Blood Count 8.8 K/mm3 (4.5-10.0)
[2021-09-10 18:27] LABS: Add Urine Microscopic? YES; Appearance Urine Clear (Clear); Bacteria Urine Trace /hpf; Bilirubin Urine Negative (Negative); Color Urine Amber (Yellow); Glucose Urine UA Negative (Negative); Ketones Urine Negative (Negative); Leukocyte Esterase Ur 2+ LEU/UL (Negative); Mucus Urine Rare /lpf; Nitrate Urine Positive (Negative); Protein Urine Negative (Negative); Specific Grav Ur 1.016 (1.001-1.035); Squamous Epithelial Cell Urine Moderate /hpf (Few); Urobilinogen Urine Negative mg/dL (<2.0); WBC Urine 31-50 /hpf
[2021-09-10 18:33] LABS: Alanine Aminotransferase 18 U/L (4-35); Albumin Level 4.6 g/dL (3.5-5.1); Alkaline Phosphatase 105 U/L (38-126); Anion Gap 11 mmol/L (8-16); Aspartate Amino Transferase 25 U/L (14-36); Bilirubin,Total 0.4 mg/dL (0.2-1.3); Blood Urea Nitrogen 16 mg/dL (7-17); Calcium 9.5 mg/dL (8.4-10.2); Carbon Dioxide 30 mmol/L (22-30); Chloride 97 mmol/L (98-107); Estimated CRCL calculation 63 ml/min; Estimated Glomerular Filt Rate > 60; Glucose 106 mg/dL (65-110); Potassium 4.1 mmol/L (3.4-5.0); Sodium 138 mmol/L (137-145)
[2021-09-10] MEDS: LACTATED RINGERS 1,000 ML 999 ML IV CONT (18:34)
[2021-09-10 18:35] LABS: Blood Urine Negative (Negative)
[2021-09-10 19:33] VITALS: BP 185/81; PULSE 92; RESP 18; O2SAT 98
[2021-09-10 20:27] VITALS: BP 190/92; PULSE 89; RESP 20; O2SAT 97
== END 2021-09-10 20:28 | disposition home or self-care (01) ==
PROVIDERS: Emergency Provider Emergency Medicine; PCP Family Medicine
DX: N39.0 Urinary tract infection, site not specified (principal); R41.82 Altered mental status, unspecified; F31.9 Bipolar disorder, unspecified; G89.29 Other chronic pain; K21.9 Gastro-esophageal reflux disease without esophagitis; E78.5 Hyperlipidemia, unspecified; I10 Essential (primary) hypertension; M19.90 Unspecified osteoarthritis, unspecified site; Z79.899 Other long term (current) drug therapy; Z88.8 Allergy status to other drugs, medicaments and biological substances; Z88.0 Allergy status to penicillin; Z79.82 Long term (current) use of aspirin; Z86.2 Personal history of diseases of the blood and blood-forming organs and certain disorders involving the immune mechanism; Z87.891 Personal history of nicotine dependence
CPT/HCPCS: 36415; 80053; 81001; 81003; 85025; 87086; 87088; 96361; 96365; 99284; J0696; J7120

== ENCOUNTER 2021-09-28 08:21 | Emergency (ER) | payer MEDICARE, MEDICAID, SELFPAY ==
[2021-09-28] VITALS (7 sets, daily range): BP systolic 128–159; BP diastolic 70–87; PULSE 74–98; RESP 13–19; TEMP 37.1; O2SAT 99
--- NOTE | 2021-09-28 08:35 | ECG_ITS ---
Measurements Intervals [place] Rate: 69 P: -21 ND: 106 QRS: -14 QRSD: 87 T: 24 QT: 377 QTc: 405 Interpretive Statements SINUS RHYTHM WITH SHORT ND INTERVAL LOW QRS VOLTAGE IN LIMB LEADS INFERIOR INFARCT, AGE INDETERMINATE BASELINE ARTIFACT- I, II, III, AVR, AVL, AVF ABNORMAL ECG Electronically Signed On 09-28-2021 14:08:15 [employer]OWERHOUSE MECH[employer]IC HELPER by Jorge Salazar D.O.
--- NOTE | 2021-09-28 08:50 | ED.AMS ---
HPI - Altered Mental Status General Chief Complaint: Altered Mental Status Stated Complaint: BRAIN FOG Time Seen by Provider: 09/28/21 08:34 Source: patient Mode of arrival: ambulatory Limitations: no limitations History of Present Illness HPI narrative: Patient is a 66-year-old female with a history of encephalopathy and dementia, brought in by EMS complaining of I am confused started this morning. Patient states that her friend who takes care of her called EMS because she does not want to take care of me anymore . Patient states that she lives in an independent apartment complex. Patient denies any headache, dizziness, speech or visual disturbance, focal weakness or numbness, unsteady gait, chest pain, shortness of breath, abdominal pain, nausea, vomiting, diarrhea, urinary symptoms, fever or chills. Related Data Home Medications Medication Instructions Recorded Confirmed aspirin [Adult Low Dose Aspirin] 81 mg PO DAILY 06/10/21 09/10/21 amlodipine 09/28/21 aripiprazole mg 09/28/21 atorvastatin 09/28/21 carvedilol 09/28/21 donepezil mg 09/28/21 duloxetine mg PO 09/28/21 estradiol VAGINAL 09/28/21 gabapentin 09/28/21 hydralazine 09/28/21 hydralazine 09/28/21 hydrocodone-acetaminophen 09/28/21 losartan 09/28/21 sertraline mg 09/28/21 trazodone 09/28/21 Allergies Allergy/AdvReac Type Severity Reaction Status Date / Time meperidine Allergy Mild Unknown Verified 09/28/21 08:35 morphine Allergy Mild Unknown Verified 09/28/21 08:35 Penicillins Allergy Mild Unknown Verified 09/28/21 08:35 bee venom protein (honey bee) Allergy Unknown Verified 09/28/21 08:35 [bees] hydromorphone AdvReac Unknown Nausea Verified 09/28/21 08:35 Review of Systems Review of Systems: All systems reviewed & are unremarkable except as noted in HPI and below Constitutional: Constitutional: Denies body ache(s), Denies chills, Denies excessive sweating, Denies fatigue, Denies fever(s), Denies headache(s), Denies lethargy, Denies malaise, Denies weakness and Denies weight loss Eyes: Eyes: Denies blurry vision, Denies change in vision and Denies loss of vision ENT: Denies dizziness, Denies ear discharge, Denies headache(s), Denies lip swelling, Denies epistaxis, Denies nasal congestion, Denies neck pain, Denies throat swelling and Denies tongue swelling Cardiovascular: Cardiovascular: Denies chest pain, Denies chest pain at rest, Denies chest pain with activity, Denies diaphoresis, Denies rapid heart rate, Denies edema, Denies irregular heart rhythm, Denies lightheadedness, Denies palpitations, Denies dyspnea and Denies dyspnea on exertion Respiratory: Respiratory: Denies chest congestion, Denies cough, Denies hemoptysis, Denies dyspnea and Denies dyspnea on exertion Gastrointestinal: Gastrointestinal: Denies abdominal pain, Denies melena, Denies hematochezia, Denies diarrhea, Denies nausea, Denies vomiting and Denies hematemesis Musculoskeletal: Musculoskeletal: Denies abnormal gait, Denies deformity, Denies joint swelling, Denies limited range of motion, Denies neck pain and Denies numbness Neurologic: Denies Abnormal speech present, Denies abnormal gait, Denies dizziness, Denies headache(s), Denies focal weakness, Denies loss of vision, Denies numbness, Denies Other visual disturbances, Denies Sensory deficit (Neuro) and Denies weakness Psychiatric: Psychiatric: Denies confusion, Denies depression, Denies auditory hallucinations, Denies homicidal ideation and Denies suicidal ideation Endocrine: Endocrine: Denies cold intolerance, Denies excessive sweating, Denies fatigue, Denies heat intolerance and Denies palpitations Hematologic/Lymphatic: Hematologic/Lymphatic: Denies easy bleeding and Denies easy bruising Allergic/Immunologic: Allergic/Immunologic: Denies lip swelling, Denies throat swelling and Denies tongue swelling PMFSH Past Medical History Medical History Bi
[2021-09-28 09:00] LABS: Add Urine Microscopic? NO; Appearance Urine Clear (Clear); Bilirubin Urine Negative (Negative); Blood Urine Negative (Negative); Color Urine Straw (Yellow); Glucose Urine UA Negative (Negative); Ketones Urine Negative (Negative); Leukocyte Esterase Ur Negative LEU/UL (Negative); Nitrate Urine Negative (Negative); Protein Urine Negative (Negative); Urobilinogen Urine Negative mg/dL (<2.0)
[2021-09-28 09:08] LABS: Alanine Aminotransferase 22 U/L (4-35); Albumin Level 4.5 g/dL (3.5-5.1); Alkaline Phosphatase 96 U/L (38-126); Anion Gap 9 mmol/L (8-16); Aspartate Amino Transferase 28 U/L (14-36); Bilirubin,Total 0.5 mg/dL (0.2-1.3); Blood Urea Nitrogen 14 mg/dL (7-17); Calcium 9.3 mg/dL (8.4-10.2); Carbon Dioxide 29 mmol/L (22-30); Chloride 100 mmol/L (98-107); Estimated CRCL calculation 77 ml/min; Estimated Glomerular Filt Rate > 60; Glucose 148 mg/dL (65-110); Potassium 3.9 mmol/L (3.4-5.0); Sodium 138 mmol/L (137-145)
[2021-09-28 09:10] LABS: Basophils Percent Auto 0.4 % (0.2-1.2); Eosinophils Absolute Auto 0.1 K/mm3 (0-0.3); Eosinophils Percent Auto 1.2 % (0-4.4); Hematocrit 38.1 % (37.0-47.0); Immature Granulocyte Absolute 0.06 K/mm3 (0.00-0.031); Immature Granulocyte Percent A 0.6 % (0-0.5); Lymphocytes Absolute Auto 0.71 K/mm3 (0.9-3.2); Lymphocytes Percent Auto 7.2 % (18.3-44.2); Mean Corpuscular HGB Conc 31.5 g/dl (32-36); Mean Corpuscular Hemoglobin 25.5 pg (26-34); Mean Corpuscular Volume 80.9 fl (80-100); Mean Platelet Volume 9.5 fl (7.4-10.4); Monocytes Absolute Auto 0.6 K/mm3 (0.1-0.6); Monocytes Percent Auto 6.3 % (2.6-8.5); Neutrophils Absolute Auto 8.4 K/mm3 (1.3-6.7); Neutrophils Percent Auto 84.3 % (45.5-73.1); Platelet Count Result 244 k/mm3 (150-375); Red Blood Count 4.71 M/mm3 (4.2-5.4); Red Cell Distribution Width 19.8 % (11.5-14.5); White Blood Count 9.9 K/mm3 (4.5-10.0)
[2021-09-28 09:19] LABS: Troponin I < 0.012 ng/mL (0.000-0.034)
--- NOTE | 2021-09-28 12:56 | PC.NURSE ---
Child Welfare Caseworker contacted patient's son for transport back to her apartment. Son informed keno writer / runner that he would get transport for patient back to her apartment.
== END 2021-09-29 03:05 | disposition home or self-care (01) ==
PROVIDERS: Emergency Provider Emergency Medicine; PCP Family Medicine
DX: F03.90 Unspecified dementia, unspecified severity, without behavioral disturbance, psychotic disturbance, mood disturbance, and anxiety (principal); G93.40 Encephalopathy, unspecified; E78.5 Hyperlipidemia, unspecified; I10 Essential (primary) hypertension; M54.50 Low back pain, unspecified; G89.4 Chronic pain syndrome; D64.9 Anemia, unspecified; K21.9 Gastro-esophageal reflux disease without esophagitis; H40.9 Unspecified glaucoma; F41.1 Generalized anxiety disorder; F31.9 Bipolar disorder, unspecified; M19.90 Unspecified osteoarthritis, unspecified site; Z98.49 Cataract extraction status, unspecified eye; Z96.651 Presence of right artificial knee joint; Z87.891 Personal history of nicotine dependence; Z79.82 Long term (current) use of aspirin; R94.31 Abnormal electrocardiogram [ECG] [EKG]
CPT/HCPCS: 36415; 80053; 81003; 84484; 85025; 93005; 99284

== ENCOUNTER 2021-11-18 09:34 | Outpatient (CLI) | payer MEDICARE, MEDICAID, SELFPAY ==
--- NOTE | ~2021-11-18 | MM_ITS ---
EXAMINATION: MM screening kathy BI w fatou HISTORY: Screening TECHNIQUE: Craniocaudal and mediolateral oblique 3-D tomosynthesis images were obtained and synthetic 2-D images were generated. CAD analysis was submitted and interpreted. COMPARISON: Comparison to multiple prior studies sequentially, with oldest reviewed study dated 10/31. BREAST PARENCHYMAL COMPOSITION: There are scattered areas of fibroglandular density. FINDINGS: There is no evidence of suspicious mass, calcification, or architectural distortion to sugg est malignancy in either breast. There has been no suspicious interval change. IMPRESSION: 1. No mammographic evidence of malignancy. 2. Recommend routine screening mammography in one year. BI-RADS Category 1: Negative Reviewed, dictated and finalized at location A. OR [employer] ADMINISTRATOR
== END 2021-11-18 09:35 | disposition home or self-care (01) ==
LOC: ANHIMG 09:39
PROVIDERS: PCP Family Medicine; Visit Provider Family Medicine
DX: Z12.31 Encounter for screening mammogram for malignant neoplasm of breast (principal)
CPT/HCPCS: 77063; 77067

== ENCOUNTER 2021-12-05 08:17 | Emergency (ER) | payer MEDICARE, MEDICAID, SELFPAY ==
[2021-12-05 08:22] VITALS: BP 115/86; PULSE 73; RESP 18; TEMP 36.6; O2SAT 97
[2021-12-05 08:49] LABS: Add Urine Microscopic? YES; Appearance Urine Cloudy (Clear); Bilirubin Urine Negative (Negative); Blood Urine Negative (Negative); Color Urine Amber (Yellow); Glucose Urine UA Negative (Negative); Hyaline Casts Urine 20-29 /lpf; Ketones Urine Trace mg/dL (Negative); Leukocyte Esterase Ur Negative LEU/UL (Negative); Mucus Urine Rare /lpf; Nitrate Urine Negative (Negative); Protein Urine 1+ mg/dL (Negative); Specific Grav Ur 1.023 (1.001-1.035); Urobilinogen Urine Negative mg/dL (<2.0); WBC Urine 0-3 /hpf
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
[2021-12-05 10:14] VITALS: BP 156/79; PULSE 69; RESP 18; O2SAT 97
== END 2021-12-05 10:16 | disposition home or self-care (01) ==
PROVIDERS: Emergency Provider Family Medicine; PCP Family Medicine
DX: N30.90 Cystitis, unspecified without hematuria (principal); E78.5 Hyperlipidemia, unspecified; I10 Essential (primary) hypertension; D64.9 Anemia, unspecified; K21.9 Gastro-esophageal reflux disease without esophagitis; F31.9 Bipolar disorder, unspecified; F41.1 Generalized anxiety disorder; H40.9 Unspecified glaucoma; M19.90 Unspecified osteoarthritis, unspecified site; Z96.651 Presence of right artificial knee joint; Z98.49 Cataract extraction status, unspecified eye; Z87.891 Personal history of nicotine dependence; Z79.82 Long term (current) use of aspirin
CPT/HCPCS: 51701; 81001; 99283

== ENCOUNTER 2021-12-13 09:07 | Emergency (ER) | payer MEDICARE, MEDICAID, SELFPAY ==
[2021-12-13] VITALS (12 sets, daily range): BP systolic 126–128; BP diastolic 62–95; PULSE 84–96; RESP 14–16; TEMP 36; O2SAT 96–100
--- NOTE | ~2021-12-13 | XR_ITS ---
EXAMINATION: XR chest 2V EXAM DATE: 12/13/2021 10:20 INDICATION: Cough and wheezing. TECHNIQUE: Frontal and lateral projections of the chest obtained and reviewed. Comparison is made to prior examination from 06/12/2021. FINDINGS: There is moderate sliding gastroesophageal hiatal hernia. The lungs are clear. There are no pleural effusions. The cardiomediastinal silhouette is within normal limits. There is no pneumot horax suspected. The bones and soft tissues are unremarkable. IMPRESSION: No acute cardiopulmonary findings. Moderate hiatal hernia. Reviewed, dictated and finalized at location B.
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
[2021-12-13] MEDS: ALBUTEROL SULFATE NEB 2.5 MG/3 ML INH 1.25 MG INHALATION ×2 (10:53→12:26)
[2021-12-13] MEDS: predniSONE 20 MG TABLET 60 MG PO (10:55)
[2021-12-13 12:01] LABS: SARS-CoV-2 RNA PCR Negative
--- NOTE | 2021-12-13 12:13 | ECG_ITS ---
Measurements Intervals [place] Rate: 75 P: 109 IN: 129 QRS: -24 QRSD: 93 T: 0 QT: 373 QTc: 418 Interpretive Statements SINUS RHYTHM INFERIOR MYOCARDIAL INFARCTION , PROBABLY OLD [40+ ms Q WAVE AND/OR ST/T ABNORMALITY IN II/aVF] BASELINE ARTIFACT ABNORMAL ECG COMPARED TO ECG 09/28/2021 09:07:17 NO SIGNIFICANT CHANGES Electronically Signed On 12-13-2021 17:26:23 CDT by Espinoza Doshi M.D.
[2021-12-13] MEDS: ACETAMINOPHEN 500 MG TABLET 1000 MG PO (13:35)
[2021-12-13 14:00] LABS: Troponin I < 0.012 ng/mL (0.000-0.034)
== END 2021-12-13 14:30 | disposition home or self-care (01) ==
PROVIDERS: Physician Assistant; Emergency Provider Emergency Medicine; PCP Family Medicine
DX: J06.9 Acute upper respiratory infection, unspecified (principal); Z20.822 Contact with and (suspected) exposure to COVID-19; J44.9 Chronic obstructive pulmonary disease, unspecified; D64.9 Anemia, unspecified; E78.5 Hyperlipidemia, unspecified; I10 Essential (primary) hypertension; H40.9 Unspecified glaucoma; M19.90 Unspecified osteoarthritis, unspecified site; K21.9 Gastro-esophageal reflux disease without esophagitis; F41.1 Generalized anxiety disorder; F31.9 Bipolar disorder, unspecified; Z87.442 Personal history of urinary calculi; R94.31 Abnormal electrocardiogram [ECG] [EKG]; Z79.82 Long term (current) use of aspirin; Z87.891 Personal history of nicotine dependence
CPT/HCPCS: 36415; 71046; 84484; 93005; 94640; 99284; A9270; C9803; J7512; U0003; U0005

== ENCOUNTER 2021-12-27 00:26 | Inpatient (IN) | payer MEDICARE, MEDICAID, SELFPAY ==
[2021-12-27] VITALS (34 sets, daily range): BP systolic 148–204; BP diastolic 64–157; PULSE 84–126; RESP 14–30; TEMP 36.3–36.9; O2SAT 94–100; BMI 31.7
--- NOTE | ~2021-12-27 | CT_ITS ---
EXAMINATION: CT brain wo con INDICATION: Altered mental status, confusion COMPARISON: None TECHNIQUE: Standard unenhanced head CT. The dose-length product (DLP) was 605.33 mGy-cm. The mA was a djusted according to patient size. Iterative reconstruction technique was employed. FINDINGS: There is no intracranial hemorrhage, acute infarction, or abnormal mass lesion. The ventric les are normal. There is no abnormal mass effect or midline shift. The menendez-white matter differentiat ion is normal. The basal cisterns are patent. The orbits are normal. The paranasal sinuses, mastoids and calvarium are normal. A small amount of intravascular contrast from the earlier abdomen and pelvi s CT is noted. IMPRESSION: 1. No acute intracranial abnormality. Reviewed, dictated and finalized at location A.
--- NOTE | ~2021-12-27 | CT_ITS ---
EXAMINATION: CT abdomen pelvis w con INDICATION: Right lower quadrant pain TECHNIQUE: Computed tomographic images of the abdomen and pelvis were obtained after the administrati on of 100 cc of Omnipaque 350 intravenous contrast. The dose-length product (DLP) was 733.85 mGy-cm. Automated exposure control and iterative reconstruction technique were employed. COMPARISON: 05/29/2016 FINDINGS: Minimal dependent atelectasis is present in the lung bases. The heart size is normal. There is a moderate size hiatal hernia. Cysts of the liver measure up to 1.8 cm. The liver, spleen, pancre as,, gallbladder, and adrenal glands are normal. The kidneys are unremarkable. There is calcified ath erosclerosis of the aorta and many of the other arteries. No pathologically enlarged abdominal or pel emperatriz lymph nodes are identified. There is no free intraperitoneal gas or evidence of bowel obstruction . Bilateral adnexal cysts measure up to 3.2 cm on the left. There are healed fractures of the inferio r pubic rami. A chronic L3 burst fracture is noted. Colonic diverticulosis is present without evidenc e of diverticulitis. IMPRESSION: 1. No CT correlate for the patient's symptoms. 2. Adnexal cyst measuring up to 3.2 cm on the left. Follow-up pelvic ultrasound in one year is recomm ended. Reviewed, dictated and finalized at location A. IMPRESSION: 1. No CT correlate for the patient's symptoms. 2. Adnexal cyst measuring up to 3.2 cm on the left. Follow-up pelvic ultrasound in one year is recommended.
[2021-12-27] MEDS: SODIUM CHLORIDE 0.9% IV 1,000 ML 999 ML IV CONT (00:35)
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
[2021-12-27] MEDS: LORazepam INJ (*CRX) 2 MG/ML VIAL (04:16)
--- NOTE | 2021-12-27 04:50 | PC.NURSE ---
pt given lunch box meal and drink, sat up in bed. notified that she will be admitted to ER. was given Ativan IV for agitation, appears to be working slightly..
[2021-12-27 05:57] LABS: Basophils Percent Auto 0.2 % (0.2-1.2); Hematocrit 40.6 % (37.0-47.0); Hemoglobin 13.7 g/dL (12.0-15.0); Immature Granulocyte Absolute 0.19 K/mm3 (0.00-0.031); Immature Granulocyte Percent A 1.5 % (0-0.5); Lymphocytes Absolute Auto 0.86 K/mm3 (0.9-3.2); Mean Corpuscular HGB Conc 33.7 g/dl (32-36); Mean Corpuscular Hemoglobin 28.2 pg (26-34); Mean Corpuscular Volume 83.5 fl (80-100); Mean Platelet Volume 9.1 fl (7.4-10.4); Monocytes Absolute Auto 0.2 K/mm3 (0.1-0.6); Monocytes Percent Auto 1.9 % (2.6-8.5); Neutrophils Percent Auto 89.4 % (45.5-73.1); Platelet Count Result 222 k/mm3 (150-375); Red Blood Count 4.86 M/mm3 (4.2-5.4); Red Cell Distribution Width 14.9 % (11.5-14.5); White Blood Count 12.3 K/mm3 (4.5-10.0)
[2021-12-27 06:02] LABS: Alanine Aminotransferase 30 U/L (4-35); Albumin Level 4.8 g/dL (3.5-5.1); Alkaline Phosphatase 100 U/L (38-126); Anion Gap 10 mmol/L (8-16); Aspartate Amino Transferase 34 U/L (14-36); Bilirubin,Total 0.7 mg/dL (0.2-1.3); Blood Urea Nitrogen 26 mg/dL (7-17); Calcium 9.4 mg/dL (8.4-10.2); Carbon Dioxide 29 mmol/L (22-30); Chloride 99 mmol/L (98-107); Estimated CRCL calculation 72 ml/min; Estimated Glomerular Filt Rate > 60; Glucose 133 mg/dL (65-110); Sodium 138 mmol/L (137-145)
[2021-12-27 06:09] LABS: Amphetamine Screen Urine Negative (Negative); Barbiturate Screen Urine Negative (Negative); Benzodiazepines Screen Urine Negative (Negative); Cannabinoid Screen Urine Negative (Negative); Cocaine Screen Urine Negative (Negative); Methadone Screen Urine Negative (Negative); Opiate Screen Urine Positive (Negative); Phencyclidine Screen Urine Negative (Negative)
[2021-12-27 06:13] LABS: Mucus Urine Rare /lpf; RBC Urine 0-2 /hpf (0-2); Squamous Epithelial Cell Urine Rare /hpf (Few); WBC Urine 0-3 /hpf
[2021-12-27 06:14] LABS: Appearance Urine Clear (Clear)
[2021-12-27 06:15] LABS: Blood Urine Negative (Negative); Glucose Urine UA Negative (Negative); Ketones Urine Negative (Negative); Nitrate Urine Negative (Negative); Protein Urine Negative (Negative); Specific Grav Ur 1.015 (1.001-1.035)
[2021-12-27 06:16] LABS: Add Urine Microscopic? NO; Bilirubin Urine Negative (Negative); Color Urine Yellow (Yellow); Leukocyte Esterase Ur Negative LEU/UL (Negative); Urobilinogen Urine 0.2 mg/dL (<2.0)
--- NOTE | 2021-12-27 06:26 | PC.NURSE ---
0606- while RN was giving report to Jeannie TARIQ on the floor, pt pulled out #[id number] R AC. 0627- Jannie now at bedside attempting to get IV.
--- NOTE | 2021-12-27 07:02 | ADMGEN ---
This patient, Katie Spain, was admitted to [facility] Surg Room 333-01. Patient/family oriented to hospital policies and general routines including ID bracelet, bed and alarms, visiting hours, pain management, procedures, bathroom and other care routines, personal items, smoking policy, room service/diet, and visiting hours. Information on how to activate the Rapid Response Team has been discussed. Patient/Family are encouraged to report perceived risks to care and to ask questions if they do not understand what they are told or what they should do.
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
[2021-12-27] MEDS: HALOPERIDOL LACTATE 5 MG/ML VIAL IM (07:43)
[2021-12-27] MEDS: ACETAMINOPHEN 325 MG TABLET 650 MG PO ×2 (12:11→16:04)
[2021-12-27] MEDS: ATORVASTATIN 40 MG TABLET 80 MG PO (16:02)
[2021-12-27] MEDS: LOSARTAN POTASSIUM 50 MG TABLET PO (16:02)
[2021-12-27] MEDS: DULoxetine HCL 60 MG CAPSULE.DR PO (16:02)
[2021-12-27] MEDS: ARIPiprazole 5 MG TABLET PO (16:02)
[2021-12-27] MEDS: amLODIPine BESYLATE 5 MG TABLET 10 MG PO (16:02)
[2021-12-27] MEDS: hydrALAZINE HCL 50 MG TABLET PO (17:03)
[2021-12-27] MEDS: hydrALAZINE HCL 25 MG TABLET PO (17:03)
[2021-12-27] MEDS: HEPARIN SODIUM 5,000 UNITS/ML VIAL 5000 UNITS SUB-Q (21:14)
[2021-12-27] MEDS: carvediloL 25 MG TABLET PO (21:14)
[2021-12-28] MEDS: DOCUSATE SODIUM 100 MG CAPSULE PO (00:51)
[2021-12-28] MEDS: HYDROcodone/acetaminophen (*CRX) 5-325 MG TABLET 1 TAB PO ×3 (00:53→13:40)
[2021-12-28] MEDS: HEPARIN SODIUM 5,000 UNITS/ML VIAL 5000 UNITS SUB-Q ×2 (05:59→13:40)
[2021-12-28 06:00] VITALS: BP 151/68; PULSE 78; RESP 18; TEMP 36.6; O2SAT 95
[2021-12-28 06:48] LABS: Basophils Absolute Auto 0.1 K/mm3 (0.0-0.1); Basophils Percent Auto 0.5 % (0.2-1.2); Eosinophils Absolute Auto 0.1 K/mm3 (0-0.3); Eosinophils Percent Auto 0.6 % (0-4.4); Hematocrit 41.3 % (37.0-47.0); Hemoglobin 13.9 g/dL (12.0-15.0); Immature Granulocyte Absolute 0.11 K/mm3 (0.00-0.031); Lymphocytes Percent Auto 16.1 % (18.3-44.2); Mean Corpuscular HGB Conc 33.7 g/dl (32-36); Mean Corpuscular Hemoglobin 28.3 pg (26-34); Mean Corpuscular Volume 83.9 fl (80-100); Mean Platelet Volume 9.3 fl (7.4-10.4); Monocytes Absolute Auto 0.8 K/mm3 (0.1-0.6); Monocytes Percent Auto 7.6 % (2.6-8.5); Neutrophils Absolute Auto 7.9 K/mm3 (1.3-6.7); Neutrophils Percent Auto 74.2 % (45.5-73.1); Platelet Count Result 233 k/mm3 (150-375); Red Blood Count 4.92 M/mm3 (4.2-5.4); Red Cell Distribution Width 15.4 % (11.5-14.5); White Blood Count 10.6 K/mm3 (4.5-10.0)
[2021-12-28 07:01] LABS: Anion Gap 9 mmol/L (8-16); Blood Urea Nitrogen 21 mg/dL (7-17); Calcium 8.8 mg/dL (8.4-10.2); Carbon Dioxide 27 mmol/L (22-30); Chloride 102 mmol/L (98-107); Estimated CRCL calculation 72 ml/min; Estimated Glomerular Filt Rate > 60; Glucose 109 mg/dL (65-110); Potassium 3.7 mmol/L (3.4-5.0); Sodium 138 mmol/L (137-145)
--- NOTE | 2021-12-28 08:08 | PM.IMPN ---
Progress Note: A&P Additional Plan 66 yr old lady with dementia, COPD, hypertension, hyperlipidemia, chronic pain, schizophrenia, generalized anxiety and GERD who presented to the ED with abdominal pain. Patient started that she has this pain all the time, rated it 3/10 and that it is generalized and non radiating. She denies associated nausea, vomiting, dysuria, fever and bowel changes. Throughout my interview the patient stated that all she wants is her pain medication. (1) Abdominal pain: resolved -CT scan negative for acute findings. -patient endorsed chronicity of this pain during initial interview. -wants pain meds, given PO [place] PRN with bowel regimen. (2) Hypertension: BP stable. -continue home medications. (3)Chronic pain: restart home medications once Rx confirms them. (4) Acute encephalopathy on Dementia:acute component hasresolved Mostly dementia, alert and oriented to self and place. no evidence of infection, chemistry panel is normal. continue home meds once med reced, reorient daily. (5) Tachycardia: resolved it was present on admission related to abdominal pain and disruptive behavior on admission. (6) Disposition: -patient asked to be discharged home. -she is also clinically cleared since her presenting complain of abdominal pain has resolved and she is now alert, oriented X3 and conversant. -planned for discharge home today but I was called by the insurance case manager who informed me that the patient's son stated that he doesn't feel like she is back to her baseline . However he did not state what her baseline is. -insurance case manager is now looking into placement for the patient. Time Spent With Patient Time with patient: 15 - 25 minutes Subjective Date/time seen: 12/28/21 08:08 Patient seen lying comfortably in bed, she endorsed feeling better, abdominal pain has resolved and she asked to be discharged home. Review of Systems Review of Systems: All systems reviewed & are unremarkable except as noted in HPI and below Exam Const: General: cooperative, comfortable and no acute distress Resp: Effort & Inspection: normal respiratory effort and able to speak in complete sentences Auscultation: clear to auscultation bilaterally GI: Inspection: normal to inspection GI Palp: Yes Soft to palpation and No Tenderness to palpation present (GI) Auscultation: normal bowel sounds Skin: General skin exam: normal color and no rashes or lesions noted Neuro: General: oriented to person, oriented to place, oriented to time, patient oriented x3 and moves all extremities Speech: normal speech Extrem: General: normal to inspection Objective Data Vital Signs Vital Signs: Vital Signs - 24 hr 12/27/21 14:00 12/27/21 22:00 12/28/21 06:00 Temperature 97.4 F L 98.4 F 97.9 F Pulse Rate 84 98 78 Respiratory Rate 18 20 18 Blood Pressure 179/82 H 152/64 H 151/68 H Pulse Oximetry 98 97 95 Intake/Output Intake/Output: Intake & Output 12/25/21 12/26/21 12/27/21 12/28/21 23:59 23:59 23:59 23:59 Intake Total 1236 Output Total 400 800 Balance 836 -800 Meds/Results Medications: Active Medications Generic Name Dose Route Start Last Admin Trade Name Freq PRN Reason Stop Dose Admin Acetaminophen 650 mg 12/27/21 07:32 12/27/21 16:04 Acetaminophen 325 Mg Tablet PO 650 mg Q4H PRN Administration Headache Hydrocodone Bitart/Acetaminophen 1 tab 12/27/21 14:47 12/28/21 06:33 Hydrocodone/Acetaminophen (*Crx) 5-325 Mg Tablet PO 1 tab Q6H PRN Administration Pain Rated 4-6 Amlodipine Besylate 10 mg 12/27/21 14:55 12/27/21 16:02 Amlodipine Besylate 5 Mg Tablet PO 10 mg DAILY RADHA Administration Aripiprazole 5 mg 12/27/21 14:55 12/27/21 16:02 Aripiprazole 5 Mg Tablet PO 5 mg DAILY RADHA Administration Atorvastatin Calcium 80 mg 12/27/21 14:55 12/27/21 16:02 Atorvastatin 40 Mg Tablet PO 80 mg DAILY RADHA Administration Carvedilol 25 mg 12/27/21 21:00 12/27/21 21:
[2021-12-28 09:29] VITALS: PULSE 87
[2021-12-28] MEDS: amLODIPine BESYLATE 5 MG TABLET 10 MG PO (09:29)
[2021-12-28] MEDS: carvediloL 25 MG TABLET PO (09:29)
[2021-12-28] MEDS: ARIPiprazole 5 MG TABLET PO (09:29)
[2021-12-28] MEDS: DULoxetine HCL 60 MG CAPSULE.DR PO (09:29)
[2021-12-28] MEDS: ATORVASTATIN 40 MG TABLET 80 MG PO (09:29)
[2021-12-28] MEDS: LOSARTAN POTASSIUM 50 MG TABLET PO (09:29)
[2021-12-28] MEDS: hydrALAZINE HCL 25 MG TABLET PO (09:29)
[2021-12-28] MEDS: hydrALAZINE HCL 50 MG TABLET PO (09:31)
--- NOTE | 2021-12-28 11:28 | PC.NURSE ---
Contacted Dr. Fontana about the duplicate dose of hydralazine on patient mar. There were orders for 50mg as well as 25mg hydralazine tablets ordered. Called at [address] Fontana gave the all clear to give both doses of hydralazine as it is a home medication for the patient.
[2021-12-28 14:00] VITALS: BP 130/71; PULSE 94; RESP 18; TEMP 36.4; O2SAT 95
--- NOTE | 2021-12-28 14:07 | PM.DS ---
DS: Admitting Diagnosis Discharge Date 12/28/2021 Admitting Diagnosis Abdominal pain DS: Discharge Diagnosis Discharge Diagnosis (1) Altered mental status: Qualifiers: Altered mental status type: disorientation Qualified Code(s): R41.0 - Disorientation, unspecified Code(s): R41.82 - Altered mental status, unspecified Status: Acute (2) Dementia: Code(s): F03.90 - Unspecified dementia without behavioral disturbance Status: Acute (3) Abdominal pain: Qualifiers: Abdominal location: right lower quadrant Qualified Code(s): R10.31 - Right lower quadrant pain Code(s): R10.9 - Unspecified abdominal pain Status: Acute (4) Chronic pain: Code(s): G89.29 - Other chronic pain Status: Acute (5) Encephalopathy: Code(s): G93.40 - Encephalopathy, unspecified Status: Acute (6) Tachycardia: Code(s): R00.0 - Tachycardia, unspecified Status: Acute DS: Summary Hospital Course Hospital Course: 66 yr old lady with dementia, COPD, hypertension, hyperlipidemia, chronic pain, schizophrenia, generalized anxiety and GERD who presented to the ED with abdominal pain. Patient started that she has this pain all the time, rated it 3/10 and that it is generalized and non radiating. She denies associated nausea, vomiting, dysuria, fever and bowel changes. Throughout my interview the patient stated that all she wants is her pain medication. Her abdominal pain resolved prior to discharge. Work up with CT scan negative for acute findings. It was managed with PO Tylenol and [place] PRN. Regarding the acute encephalopathy on Dementia, the acute component resolved prior to discharge. Her presentation was mostly due to dementia, work up did not reveal any infection, chemistry panel is normal. The patient was alert and oriented X3 prior to discharge Regarding her disposition, she was planned for discharge home on 12/28/21 but I was called by the case operator who informed me that the patient's son stated that he doesn't feel like she is back to her baseline . However he did not state what her baseline is. green house manager got the patient placed at [facility] for shelter care at the family's request. Time Spent with Patient Time attestation: Total time spent providing and/or coordinating discharge services: 45 minutes Time spent: Greater than 30 minutes Exam Const: General: cooperative, comfortable, no acute distress and alert HENMT: Head: normal to inspection Eyes: General: appearance normal, both eyes and all related structures Resp: Effort & Inspection: normal respiratory effort and able to speak in complete sentences Auscultation: clear to auscultation bilaterally Cardio: Rate: regular rate Rhythm: regular rhythm Heart sounds: S1 normal heart sound present and S2 normal heart sound present GI: GI Palp: Yes Soft to palpation and No Tenderness to palpation present (GI) Auscultation: normal bowel sounds Neuro: General: oriented to person, patient oriented x3 and moves all extremities DS: Data Data Completed and Pending Labs on day of discharge: Labs from last 24 hours 12/28/21 12/28/21 06:10 06:10 WBC 10.6 H RBC 4.92 Hgb 13.9 Hct 41.3 MCV 83.9 MCH 28.3 MCHC 33.7 RDW 15.4 H Plt Count 233 MPV 9.3 Immature Gran % (Auto) 1.0 H Neut % (Auto) 74.2 H Lymph % (Auto) 16.1 L [place] % (Auto) 7.6 Eos % (Auto) 0.6 Baso % (Auto) 0.5 Lymph # (Auto) 1.70 Pep[place] # (Auto) 0.8 H Eos # (Auto) 0.1 Baso # (Auto) 0.1 Abs Immat Gran (auto) 0.11 H Absolute Neuts (auto) 7.9 H Absolute Nucleated RBC 0.0 Nucleated RBC % 0.0 Sodium 138 Potassium 3.7 Chloride 102 Carbon Dioxide 27 Anion Gap 9 BUN 21 H Creatinine 0.80 Estim Creat Clear Calc 72 Estimated GFR > 60 Glucose 109 Calcium 8.8 Discharge Plan Discharge Attending physician on discharge: [facility]
[2021-12-28 14:42] LABS: EDCOVIDSCREEN Negative (Negative)
[2021-12-31 12:51] LABS: Methyl Alcohol Level None Detected (None Detected)
== END 2021-12-28 15:55 | DRG 392 ==
LOC: ANHED 05:33 → ANH3MEDSUR 11:50
PROVIDERS: Admitting Provider Internal Medicine; Emergency Provider Emergency Medicine; PCP Family Medicine; Visit Provider Internal Medicine
DX: R10.9 Unspecified abdominal pain (principal); G93.40 Encephalopathy, unspecified; Z20.822 Contact with and (suspected) exposure to COVID-19; J44.9 Chronic obstructive pulmonary disease, unspecified; F03.90 Unspecified dementia, unspecified severity, without behavioral disturbance, psychotic disturbance, mood disturbance, and anxiety; E78.5 Hyperlipidemia, unspecified; G89.29 Other chronic pain; K21.9 Gastro-esophageal reflux disease without esophagitis; F20.9 Schizophrenia, unspecified; F32.9 Major depressive disorder, single episode, unspecified; I10 Essential (primary) hypertension; M19.91 Primary osteoarthritis, unspecified site; Z87.891 Personal history of nicotine dependence; Z79.899 Other long term (current) drug therapy; Z79.82 Long term (current) use of aspirin; Z79.52 Long term (current) use of systemic steroids; R00.0 Tachycardia, unspecified
CPT/HCPCS: 36415; 70450; 74177; 80048; 80053; 80307; 81003; 84600; 85025; 87426; 96374; 99285; A9270; C9803; J1630; J1644; J2060; J7030; Q9967

== ENCOUNTER 2022-01-26 14:14 | Emergency (ER) | payer MEDICARE, MEDICAID, SELFPAY ==
[2022-01-26] VITALS (11 sets, daily range): BP systolic 110–167; BP diastolic 55–100; PULSE 84–87; RESP 17–20; TEMP 36.6; O2SAT 94–97
--- NOTE | ~2022-01-26 | CT_ITS ---
EXAMINATION: CT thoracic lumbar wo con DATE: 01/26/2022 15:17 INDICATION: Fall, midline tenderness TECHNIQUE: Computed tomography (CT) of the thoracic and lumbar spine was performed without intravenou s contrast. Automated exposure control and iterative reconstruction technique were employed. The dose -length product was 2125.01 mGy-cm. COMPARISON: Spine x-rays 05/26/2017. CT abdomen and pelvis 12/27/2021. FINDINGS: Thoracic spine: Thoracic scoliosis. Pedicles intact. Normal vertebral body alignment. Vertebral body heights preserved. Multilevel degenerative disc disease. Stable superior endplate deformity of a midt horacic vertebral body. No central canal stenosis. Normal facets and posterior elements. No acute fra cture. Lumbar spine: 5 nonrib-bearing lumbar-type vertebral bodies. Pedicles intact. Mild scoliosis. Loss of the lumbar lordosis. Stable severe compression deformity of L3, with retropulsion, causing moderate central canal stenosis. Multilevel degenerative disc disease. Multilevel facet arthropathy. No acute fracture. Other findings: Hiatal hernia. No lung mass. Likely cyst in the right kidney. Bilateral adnexal cysts . IMPRESSION: 1. No acute fracture or traumatic malalignment in the thoracic or lumbar spine. 2. Chronic and incidental findings detailed above. Prior recommendation for pelvic ultrasound follow- up for bilateral adnexal cysts in one year (December 2022) is unchanged. Reviewed, dictated and finalized at [facility]. IMPRESSION: 1. No acute fracture or traumatic malalignment in the thoracic or lumbar spine. 2. Chronic and incidental findings detailed above. Prior recommendation for pel emperatriz ultrasound follow-up for bilateral adnexal cysts in one year (December 2022) i s unchanged.
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
[2022-01-26] MEDS: LIDOCAINE 5% PATCH 2 PATCH TRANSDERM (15:33)
[2022-01-26 16:26] LABS: Add Urine Microscopic? YES; Appearance Urine Clear (Clear); Bilirubin Urine 1+ (Negative); Blood Urine Negative (Negative); Color Urine Orange (Yellow); Glucose Urine UA Trace mg/dL (Negative); Ketones Urine Trace mg/dL (Negative); Leukocyte Esterase Ur Trace LEU/UL (Negative); Nitrate Urine Positive (Negative); Protein Urine 3+ mg/dL (Negative); Specific Grav Ur 1.015 (1.001-1.035)
[2022-01-26 16:33] LABS: Bacteria Urine Trace /hpf; Mucus Urine Rare /lpf; RBC Urine 0-2 /hpf (0-2); Squamous Epithelial Cell Urine Rare /hpf (Few); WBC Urine 31-50 /hpf
--- NOTE | 2022-01-26 19:53 | PC.NURSE ---
Attempted to call report to [facility] twice, no answer, unable to leave a message. Previous nurse stated she did call report, but not documented.
--- NOTE | 2022-01-26 20:05 | PC.NURSE ---
Attempted to call report again to [facility], no answer and unable to leave a message.
--- NOTE | 2022-01-26 21:52 | PC.NURSE ---
Called report to [facility], spoke with Jayson, the nurse caring for patient.
--- NOTE | 2022-01-31 09:43 | PC.NURSE ---
LATE ENTRY This note is being entered to document information to the patient's record. The following information was omitted on [01/26/22], by []. Verbal order read back by for straight cath.
== END 2022-01-26 22:00 ==
PROVIDERS: Physician Assistant; Emergency Provider Emergency Medicine; PCP Family Medicine
DX: S39.92XA Unspecified injury of lower back, initial encounter (principal); S29.9XXA Unspecified injury of thorax, initial encounter; N30.00 Acute cystitis without hematuria; J44.9 Chronic obstructive pulmonary disease, unspecified; F03.90 Unspecified dementia, unspecified severity, without behavioral disturbance, psychotic disturbance, mood disturbance, and anxiety; E78.5 Hyperlipidemia, unspecified; I10 Essential (primary) hypertension; D64.9 Anemia, unspecified; K21.9 Gastro-esophageal reflux disease without esophagitis; H40.9 Unspecified glaucoma; F41.1 Generalized anxiety disorder; F31.9 Bipolar disorder, unspecified; M19.90 Unspecified osteoarthritis, unspecified site; Z79.82 Long term (current) use of aspirin; Z98.49 Cataract extraction status, unspecified eye; Z96.651 Presence of right artificial knee joint; Z87.891 Personal history of nicotine dependence; W18.39XA Other fall on same level, initial encounter
CPT/HCPCS: 51701; 72128; 72131; 81001; 87077; 87086; 87186; 96365; 99284; A9270; J0696